=== PATIENT | female | born 1940 | race Caucasian/White ===

== ENCOUNTER 2017-05-18 12:33 | Inpatient (IN) ==
[2017-05-18] MEDS ORDERED: Lidocaine -MPF 1% 2 ML VIAL ID ONE (12:59)
[2017-05-18] MEDS ORDERED: Albuterol 2.5 MG/3 ML NEBULIZER IH ONE (12:59)
[2017-05-18] MEDS ORDERED: CeFAZolin Syr 2,000MG/20 ML 2,000 MG/20 ML SYRINGE IVPB ONE (12:59)
[2017-05-18] MEDS ORDERED: 0.9 % Sodium Chloride 500 ML IVC SCH (13:00)
--- NOTE | 2017-05-18 13:35 | History & Physical Report ---
Date of Encounter: 05/18/17 Time of Encounter: 13:30 24 Hour HP Update - Instructions Instructions: If the History and Physical is less than 30 days old and was completed prior to A.M. admission and or procedure and has NOT been updated on calendar day of procedure please complete this update prior to performing procedure. - Update Patient reports changes in Medical Condition: No Changes in examination, assessment, or condition: No Changes in Medication: No Preop tests/diagnostics Reviewed: Yes Surgery Remains Indicated: Yes Consent for Planned Operative Procedure(s) Verified: Yes - Pre-Operative Checklist Preoperative Checklist Indicated: Yes Prophylactic Antibiotic Ordered: Yes Home Medications Include Beta Isac: Yes Beta Isac Taken Today (Day of Surgery): Yes Beta Isac Taken Yesterday (Day Prior to Surgery): Yes Is VTE Prophylaxis Indicated?: Yes
--- NOTE | 2017-05-18 14:28 | Anesthesia Evaluation PreOp ---
Date of Encounter: 05/18/17 Time of Encounter: 14:26 - Past History Planned Operation: left mastectomy (Modified radical) Cardiac History: AR (x4 last 4yrs ago), HTN, Hyperlipidemia, Cardiac Stent ( stents x 4 approx 4 yrs ago. Stopped effient), Pacemaker/ICD (for cardiomyopathy ), Other (CAD) Pulmonary History: Asthma HOST/HOSTESS History: Denies Any Significant HX, Other (breast Cancer) Other Medical History: Renal (CKD 3) Anesthesia History: Past Anesthesia (reyes, hysterectomy, defibrillator placement, breast bx) Alcohol Use: none Drug use: none Medications and Allergies Fesoterodine Fumarate [Toviaz] 4 mg PO DAILY 05/10/15 [History] Glimepiride [Amaryl] 1 mg PO PRN PRN 05/10/15 [History] Linagliptin [Tradjenta] 5 mg PO DAILY 05/10/15 [History] TraMADol [Ultram] 50 mg PO Q6HR PRN 05/10/15 [History] Valsartan [Diovan] 80 mg PO DAILY 05/10/15 [History] Aspirin Enteric Coated [Aspirin EC] 81 mg PO DAILY #30 tablet. 05/12/15 [Rx] Prasugrel [Effient] 10 mg PO DAILY #30 tablet 05/12/15 [Rx] Furosemide [Lasix] 40 mg PO BID 08/13/15 [History] Isosorbide MONOnitrate (24 HR) [Imdur] 30 mg PO DAILY 08/13/15 [History] Carvedilol [Coreg] 12.5 mg PO BIDWM 10/17/16 [History] Cholecalciferol (D-3) [Vitamin D] 5,000 unit PO DAILY 10/17/16 [History] Atorvastatin [Lipitor] 40 mg PO HS 03/10/17 [History] MOM Conc [Milk of Magnesia Conc] 10 ml PO DAILY PRN 04/13/17 [History] Nitroglycerin [Nitrostat] 1 tab SL DAILY PRN 04/13/17 [History] Simethicone [Gas-X] 80 mg PO DAILY PRN 04/13/17 [History] 3 Allergy/AdvReac Type Severity Reaction Status Date / Time codeine Allergy Unknown heart races Verified 04/27/17 14:25 lisinopril Allergy Cough Verified 04/27/17 14:25 - Meds/Allergy Pre-op Review Medications Reviewed: Yes Allergies Reviewed: Yes Beta Blockers on Current Med List: Yes If Beta Blockers taken, Date/Time (Last Dose taken): today 929 Anesthesia Results - Imaging EKG: report reviewed (SINUS RHYTHM POSSIBLE INFERIOR MYOCARDIAL INFARCTION, PROBABLY OLD) Additional studies: echo 2016: Impressions: LVEF 50%. There is evidence of mild diastolic dysfunction of the left ventricle. Normal right ventricular size and function. Mild- moderate aortic regurgitation. Moderate-severe mitral regurgitation. Mild tricuspid regurgitation. Estimated RVSP was 31 mmHg. No pulmonary hypertension. There is no evidence of a PFO with agitated saline contrast. A linear echodensity consistent with a pacer lead was seen in the right atrium and right ventricle. Since prior study, 05/11/2015, LV systolic function has improved. Degree of mitral regurgitation is worse. Consider CYRIL for evaluation of mitral valve. Anesthesia Exam Selected Entries 05/18/17 13:44 Temperature 98.2 F Pulse Rate 76 Respiratory Rate 18 Blood Pressure 121/54 O2 Sat by Pulse Oximetry 96 Weight: 109kg NPO (# of Hours): 8 - HEENT Pupil (Motor): EOMI Mallampati: II Teeth: Edentulous Oral Opening: Greater than 3 - HOST/HOSTESS LOC: Oriented HOST/HOSTESS Motor: Normal RUE, Normal LUE, Normal RLE, Normal LLE, Normal Face HOST/HOSTESS Sensory: Normal: RUE, LUE, RLE, LLE, Face - Cardiac Rhythm: Regular Murmur: None - Pulmonary Breath Sounds: bilateral Clear Respiratory Effort: Symmetrical Anesthesia Assess/Plan ASA Score: 4 Modified [place] Scale for Level of Consciousness: Cooperative, oriented, and tranquil Anesthetic Plan: General Monitoring Plan: Standard Monitors Recovery Plan: PACU (Discussed GA, agrees to proceed)
[2017-05-18] MEDS ORDERED: Scopolamine Patch 1.5 MG PATCH.TD72 TD ONE (14:34)
[2017-05-18] MEDS ORDERED: *HR* Vasopressin 20 UNIT/ML VIAL ONE (15:02)
[2017-05-18] MEDS ORDERED: *HR* Succinylcholine 200 MG/10 ML VIAL IVP ONE (15:05)
[2017-05-18] MEDS ORDERED: Ondansetron 4 MG/2 ML VIAL ONE (15:05)
[2017-05-18] MEDS ORDERED: Lidocaine -MPF 2% 2 ML VIAL ONE (15:05)
[2017-05-18] MEDS ORDERED: *HR* FentaNYL (PF) 100 MCG/2 ML VIAL ONE ×2 (15:06→16:09)
[2017-05-18] MEDS ORDERED: *HR* Propofol 200 MG/20 ML VIAL IVP ONE (15:06)
[2017-05-18] MEDS ORDERED: Lidocaine -MPF 4% 5 ML AMPUL ONE (15:14)
[2017-05-18] MEDS ORDERED: *HR* Phenylephrine 10 MG/ML VIAL ONE (15:14)
[2017-05-18] MEDS ORDERED: *HR* Promethazine 25 MG/ML VIAL IVP PRN (15:16)
[2017-05-18] MEDS ORDERED: *HR* HYDROmorphone (PF) 1 MG/ML SYRINGE IVP PRN ×2 (15:16→16:40)
[2017-05-18] MEDS ORDERED: *HR* Labetalol 20 MG/4 ML SYRINGE IVP PRN (15:16)
[2017-05-18] MEDS ORDERED: EPHEDrine 50 MG/ML VIAL ONE (15:42)
[2017-05-18] MEDS ORDERED: *HR* OxyCODONE/APAP 5/325 TABLET PO PRN (16:40)
[2017-05-18] MEDS ORDERED: Ondansetron 4 MG/2 ML VIAL IVP PRN ×2 (16:40→17:55)
[2017-05-18] MEDS ORDERED: 0.9 % Sodium Chloride 1,000 ML IVC SCH (16:45)
--- NOTE | 2017-05-18 16:52 | Operative Note ---
Date of procedure: 05/18/17 Pre-op diagnosis: Left breast cancer Post-op diagnosis: same Procedure: Left modified radical mastectomy Anesthesia: CRISTIANE Surgeon: Gray Rock Estimated blood loss (cc): 25 Specimen: Left modified radical mastectomy Condition: stable Disposition: PACU Procedure in Detail: After informed consent the patient was taken to the operating room and placed in supine position and given adequate general endotracheal anesthesia. Timeout was taken. The patient was identified. Lateralizing natalee was identified. I traced out mastectomy incision in such a way that the pacemaker would be preserved. This led to an oblique orientation. I incise the skin. I made superior flaps to the level of the pacemaker and then stopped and made a careful subcutaneous dissection around the pacemaker leaving this intact. The actual pacemaker was never encountered. I did dissected up to the fibrous capsule around the pacemaker. After making the superior flaps and initial axillary dissection immediately inferior flaps electrocautery. Then rotated the breast off the chest wall by dissecting along the pectoralis fascia. I then placed a retractor behind the pectoralis major muscle and identified the axillary vein. I rotated all of the lymphatic tissue off the axillary vein and carefully followed the thoracodorsal trunk onto the latissimus. I rotated all lymphatic tissue off either side of the dorsal trunk. The thoracodorsal nerve was identified and left intact. I was not able to identify the long thoracic nerve of khalil. I oriented the specimen with topical contrast in pigment. 2 # 10 Curtis-Mattson drains were placed. These were sutured in place with 2-0 silk. The skin was reapproximated with interrupted Vicryl and skin clips. She tolerated the procedure very well. There were no problems with pacemaker during the procedure.
--- NOTE | 2017-05-18 17:29 | Anesthesia Evaluation Post Op ---
Date of Encounter: 05/18/17 Time of Encounter: 17:28 - Vital Signs Vital Signs: Vital Signs/O2 Sat, Most Current Temp Pulse Resp BP Pulse Ox 97.7 F 73 16 136/58 100 05/18/17 17:23 05/18/17 17:23 05/18/17 17:23 05/18/17 17:23 05/18/17 17:23 - Lungs Lungs: Clear Ascult./Percussion - Airway Airway: Non-obstructed - Cardiovascular Regular Rate - Mental Status Mental Status: Alert & Oriented, Answers Appropriately - Pain Pain Scale: 4 Pain Scale used: Numeric (1 - 10) - Nausea Vomiting Nausea Vomiting: Not Present - Hydration Hydration: NPO, Has not voided - Discharge PostOp Status: Transfer Patient to floor
[2017-05-18] MEDS ORDERED: *HR* Glimepiride 2 MG TABLET PO PRN (17:55)
[2017-05-18] MEDS ORDERED: *HR* Heparin 5,000 UNIT/ML VIAL SQ SCH (18:00)
[2017-05-18] MEDS: *HR* Heparin 5,000 UNIT/ML VIAL SQ SCH (18:31)
[2017-05-18] MEDS: 0.9 % Sodium Chloride 1,000 ML IVC SCH (18:31)
[2017-05-18] MEDS: *HR* OxyCODONE/APAP 5/325 TABLET PO PRN (18:37)
[2017-05-18] MEDS ORDERED: 0.9 % Sodium Chloride 500 ML IVC ONE (21:37)
[2017-05-18] MEDS: Furosemide 40 MG TABLET PO SCH (22:54)
[2017-05-18] MEDS: CeFAZolin Premix DUPLEX 2,000 MG/50 ML BAG IVPB SCH (23:27)
[2017-05-19] MEDS ORDERED: CeFAZolin Premix DUPLEX 2,000 MG/50 ML BAG IVPB SCH
[2017-05-19 05:18] LABS: Basophils % 0.1 %; Hematocrit 26.9 % (35.3-44.9); Hemoglobin 8.4 g/dL (11.5-15.4); Immature Granulocytes % 0.5 % (0-4); Lymphocytes # 0.7 K/mcL (0.6-4.6); Mean Corpuscular HGB Conc 31.2 g/dL (31.6-35.5); Mean Corpuscular Hemoglobin 29.2 pg (28.0-33.3); Mean Corpuscular Volume 93.4 fL (83.0-100.0); Mean Platelet Volume 10.1 fL (9.4-12.4); Monocytes # 0.4 K/mcL (0.0-1.3); Monocytes % 3.9 %; Neutrophils # 9.4 K/mcL (1.6-8.9); Platelet Count 191 K/mcL (140-400); Red Blood Count 2.88 M/mcL (3.82-4.97); Red Cell Distribution Width 14.1 % (11.5-14.5); Segmented Neutrophils % 88.5 %
[2017-05-19 05:30] LABS: Calcium 7.7 mg/dL (8.6-10.8); Potassium 3.8 mEq/L (3.5-4.5)
[2017-05-19] MEDS: *HR* OxyCODONE/APAP 5/325 TABLET PO PRN (05:55)
[2017-05-19] MEDS: *HR* Heparin 5,000 UNIT/ML VIAL SQ SCH ×2 (06:31→18:01)
[2017-05-19] MEDS: Aspirin Enteric Coated 81 MG Tablet PO SCH (07:54)
[2017-05-19] MEDS: Furosemide 40 MG TABLET PO SCH ×2 (07:54→18:01)
[2017-05-19] MEDS: *HR* HYDROmorphone (PF) 1 MG/ML SYRINGE IVP PRN ×3 (07:54→18:01)
[2017-05-19] MEDS: Isosorbide MONOnitrate (24 HR) 30 MG TAB.ER.24H PO SCH (07:55)
[2017-05-19] MEDS: (Linagliptin [Tradjenta] 5 MG) PO SCH (07:55)
[2017-05-19] MEDS: Valsartan 80 MG TABLET PO SCH (07:55)
[2017-05-19] MEDS: CeFAZolin Premix DUPLEX 2,000 MG/50 ML BAG IVPB SCH (08:30)
[2017-05-19] MEDS ORDERED: D5% in Water 1,000 ML IVC PRN (10:35)
[2017-05-19] MEDS ORDERED: Dextrose Gel 15 GM PO PRN ×2 (10:35)
[2017-05-19] MEDS ORDERED: *HR* Dextrose 50 % in Water (Syg) 50 ML SYRINGE IVP PRN (10:35)
[2017-05-19] MEDS: Insulin LISPRO 300 UNITS/3 ML VIAL SQ SCH ×3 (11:48→21:02)
--- NOTE | 2017-05-19 12:05 | General Surgery Progress Note ---
<ZahidaShantal Gordo - Last Filed: 05/19/17 13:17> Date of Encounter: 05/19/17 Time of Encounter: 12:00 - Assessment and Plan (1) Breast cancer in female Current Visit: No Status: Acute POD #1 Left modified radical mastectomy with Dr. Rock Supportive care and pain control Continue JESSICA drain X 2 Drain education managed services sales consultant to assess for home care needs- home health care IV fluids- 50ml/hour Daily dressing changes Qualifiers: Breast location: unspecified site of breast Estrogen receptor status: unspecified Laterality: left Qualified Code(s): C50.912 - Malignant neoplasm of unspecified site of left female breast (2) Morbid obesity with BMI of 40.0-44.9, adult Current Visit: Yes Status: Chronic (3) Ischemic cardiomyopathy Current Visit: No Status: Chronic (4) DM (diabetes mellitus), type 2 Current Visit: No Status: Chronic Continue home medication regimen Hyperglycemia noted Check blood sugars ACHS Medium dose sliding scale insulin added Will continue to monitor and adjust as necessary Qualifiers: Diabetes mellitus complication status: with kidney complications Diabetes mellitus complication detail: with chronic kidney disease Diabetes mellitus terminal manager insulin use: without penitentiary use Chronic kidney disease stage: stage 3 (moderate) Qualified Code(s): E11.22 - Type 2 diabetes mellitus with diabetic chronic kidney disease; N18.3 - Chronic kidney disease, stage 3 ( moderate); N18.3 - Chronic kidney disease, stage 3 (moderate) (5) CKD (chronic kidney disease), stage III Current Visit: No Status: Acute Cr- 1.58 IV fluids- 50ml/hour Avoid nephrotoxic medications Strict I&Os Repeat am labs (6) CAD (coronary artery disease) Current Visit: No Status: Chronic Qualifiers: Coronary Disease-Associated Artery/Lesion type: [place] artery [place] vs. transplanted heart: [place] heart Associated angina: without angina Qualified Code(s): I25.10 - Atherosclerotic heart disease of [place] coronary artery without angina pectoris (7) DVT prophylaxis Current Visit: No Status: Acute Heparin 5,000 units SQ twice daily for DVT prophylaxis EPCDs to bilateral lower extremities for DVT prophylaxis Subjective Patient reports: no new complaints, still having pain (post surgical discomfort controlled), tolerating a regular diet, voiding w/o difficulty, afebrile Objective Vital Signs - Last 8 Hours Temp Pulse Resp BP Pulse Ox 05/19/17 11:29 97.4 F L 81 16 111/63 100 05/19/17 07:46 97.9 F 80 17 133/68 99 05/19/17 07:26 97.9 F 75 17 98/60 99 Intake and Output 05/18/17 05/19/17 05/19/17 23:59 07:59 15:59 Intake Total 50 / 50 50 / 50 240 / 240 Output Total 230 / 230 370 / 370 180 / 180 Balance -180 / -180 -320 / -320 60 / 60 Intake: IV Fluids 50 / 50 Ancef Premix DUPLEX 2,000 mg In 50 / 50 50 ml @ 100 mls/hr IVPB Q8HR AKILA Rx#:[id number] Oral 0 / 0 50 / 50 240 / 240 Output: Urine 0 / 0 Estimated Blood Loss 25 / 25 Wound Drainage 205 / 205 370 / 370 180 / 180 Left Breast 90 / 90 195 / 195 130 / 130 Left Distal Breast 40 / 40 175 / 175 50 / 50 Other: Meal Breakfast Percent of Meal Consumed 85% # Urine Diapers 2 1 Blood Glucose* 240 - General physical appearance well developed, well nourished, no distress - Eyes normal ocular movement - ENT normal mucosa, atraumatic, normocephalic - Neck Neck exam: trachea midline - Respiratory normal respiratory effort, clear to auscultation - Cardiovascular Cardiovascular exam: Present: RRR - Abdomen Abdomen: Present: bowel sounds present, soft, non tender - Incision Incision: Present: clean and dry, intact, approximated - Integumentary other (Left chest wall with JESSICA drain X 2 with blood tinged drainage JESSICA #1- 325ml since midnight JESSICA #2- 225ml since midnight) - Neurologic CN 2-12 grossly intact - Psychiatric oriented to time, oriented to person, oriented to place, speech is normal, memory intact - Labs 05/19/17 04:36 05/19/17 04:36 Diabetes panel 05/19/17 Range/Units 04:36 Sodium 137 (136-145) mEq/L Potassium 3.8 (3.5-4.5) mEq/L Chloride 104 (98-109) mEq/L Carbon Dioxide 21 (19-29) mEq/L BUN 28 H (7-20) mg/dL Creatinine 1.58 H (0.57-1.11) mg/dL Glucose 285 H (70-99) mg/dL Calcium 7.7 L (8.6-10.8) mg/dL Calcium panel 05/19/17 Range/Units 04:36 Calcium 7.7 L (8.6-10.8) mg/dL Pituitary panel 05/19/17 Range/Units 04:36 Sodium 137 (136-145) mEq/L Potassium 3.8 (3.5-4.5) mEq/L Chloride 104 (98-109) mEq/L Carbon Dioxide 21 (19-29) mEq/L BUN 28 H (7-20) mg/dL Creatinine 1.58 H (0.57-1.11) mg/dL Glucose 285 H (70-99) mg/dL Calcium 7.7 L (8.6-10.8) mg/dL Adrenal panel 05/19/17 Range/Units 04:36 Sodium 137 (136-145) mEq/L Potassium 3.8 (3.5-4.5) mEq/L Chloride 104 (98-109) mEq/L Carbon Dioxide 21 (19-29) mEq/L BUN 28 H (7-20) mg/dL Creatinine 1.58 H (0.57-1.11) mg/dL Glucose 285 H (70-99) mg/dL Calcium 7.7 L (8.6-10.8) mg/dL - VTE Documentation of Mechanical Device: Intermittent pneumatic compression device Consult Discharge Plan - Plan Additional Instructions: #1 may shower 05/20/17, no tub bath for 2 weeks (pin drains up using a lanyard or equivalent) #2 wash incisions with soap and water and pat dry daily #3 no lifting, pushing, pulling more than 15 pounds for the next 2 weeks #4 no driving until off narcotics for 24 hours and able to safely react in the car #5 may climb stairs Wound care- cleanse incision and around drains with soap and water and pat dry, apply split 4X4 gauze to drains X 2, apply ABD pad X 2 to left chest incision, wrap with rohit bandage and secure daily and prn if soiled. Referrals: Gray Rock MD [Partnered Physician] - 06/02/17 1:00 pm Shantal Teague CNP [Advanced Practice Nurse] - 05/25/17 9:30 am (surgery follow-up) Prescriptions: OxyCODONE/APAP 5/325 [Percocet 5/325 MG] 1 each PO Q4HR PRN #30 tablet PRN Reason: Pain Docusate [Colace] 100 mg PO BID #30 capsule - Attending Attestation For this encounter, I have reviewed the QUALITATIVE RESEARCHER or PA documentation, treatment plan, and medical decision making; and I have had face to face time with this patient. <Gray Rock - Last Filed: 05/20/17 07:49> Date of Encounter: 05/19/17 - Assessment and Plan (1) Acute blood loss anemia Current Visit: Yes Status: Acute (2) Acute blood loss as cause of postoperative anemia Current Visit: Yes Status: Acute Acute blood loss anemia secondary to anticoagulation and mastectomy. We will continue to follow her hemoglobin closely. Objective Vital Signs - Last 8 Hours Temp Pulse Resp BP 05/20/17 06:17 97.6 F 80 14 111/69 Intake and Output 05/19/17 05/19/17 05/20/17 15:59 23:59 07:59 Intake Total 1360 / 1360 360 / 360 0 / 0 Output Total 410 / 410 260 / 260 60 / 60 Balance 950 / 950 100 / 100 -60 / -60 Intake: IV Fluids 1000 / 1000 0.9 % Sodium Chloride 1,000 ML 1000 / 1000 @ 50 mls/hr IVC .Q20H AKILA Rx#: [id number] Oral 360 / 360 360 / 360 0 / 0 Output: Urine 0 / 0 0 / 0 Wound Drainage 410 / 410 260 / 260 60 / 60 Left Breast 300 / 300 180 / 180 30 / 30 Left Distal Breast 110 / 110 80 / 80 30 / 30 Other: Meal Lunch Dinner Percent of Meal Consumed 50% 75% # Urine Diapers 1 Weight 109.089 kg Blood Glucose* 175 168 Patient Weight 05/20/17 23:59 Weight 109.089 kg - Labs 05/19/17 15:50 05/19/17 04:36 - Attending Attestation The patient is postoperative day 1 from complicated mastectomy. She had some bleeding last evening the Curtis-Mattson drains have sanguinous drainage. She has dropped her hemoglobin. She will require further observation. We will keep close eye to make sure she does not build up any blood or clot underneath the flaps. Gray Rock MD FACS
--- NOTE | 2017-05-19 15:29 | Discharge Summary ---
Date of Encounter: 05/19/17 Time of Encounter: 15:25 - Discharge Diagnosis (1) Breast cancer in female Priority: Primary Status: Acute Qualifiers: Breast location: unspecified site of breast Estrogen receptor status: unspecified Laterality: left Qualified Code(s): C50.912 - Malignant neoplasm of unspecified site of left female breast (2) Morbid obesity with BMI of 40.0-44.9, adult Priority: Secondary Status: Chronic (3) Ischemic cardiomyopathy Priority: Secondary Status: Chronic (4) DM (diabetes mellitus), type 2 Priority: Secondary Status: Chronic Qualifiers: Diabetes mellitus complication status: with kidney complications Diabetes mellitus complication detail: with chronic kidney disease Diabetes mellitus termite control technician insulin use: without skilled nursing use Chronic kidney disease stage: stage 3 (moderate) Qualified Code(s): E11.22 - Type 2 diabetes mellitus with diabetic chronic kidney disease; N18.3 - Chronic kidney disease, stage 3 ( moderate); N18.3 - Chronic kidney disease, stage 3 (moderate) (5) CKD (chronic kidney disease), stage III Priority: Secondary Status: Acute (6) CAD (coronary artery disease) Priority: Secondary Status: Chronic Qualifiers: Coronary Disease-Associated Artery/Lesion type: [place] artery [place] vs. transplanted heart: [place] heart Associated angina: without angina Qualified Code(s): I25.10 - Atherosclerotic heart disease of [place] coronary artery without angina pectoris (7) DVT prophylaxis Priority: Secondary Status: Acute - Discharge Medications Prescriptions: OxyCODONE/APAP 5/325 [Percocet 5/325 MG] 1 each PO Q4HR PRN #30 tablet PRN Reason: Pain Docusate [Colace] 100 mg PO BID #30 capsule Home Medications: Fesoterodine Fumarate [Toviaz] 4 mg PO DAILY 05/10/15 [History] Glimepiride [Amaryl] 1 mg PO PRN PRN 05/10/15 [History] Linagliptin [Tradjenta] 5 mg PO DAILY 05/10/15 [History] TraMADol [Ultram] 50 mg PO Q6HR PRN 05/10/15 [History] Valsartan [Diovan] 80 mg PO DAILY 05/10/15 [History] Aspirin Enteric Coated [Aspirin EC] 81 mg PO DAILY #30 tablet.dr 05/12/15 [Rx] Prasugrel [Effient] 10 mg PO DAILY #30 tablet 05/12/15 [Rx] Furosemide [Lasix] 40 mg PO BID 08/13/15 [History] Isosorbide MONOnitrate (24 HR) [Imdur] 30 mg PO DAILY 08/13/15 [History] Carvedilol [Coreg] 12.5 mg PO BIDWM 10/17/16 [History] Cholecalciferol (D-3) [Vitamin D] 5,000 unit PO DAILY 10/17/16 [History] Atorvastatin [Lipitor] 40 mg PO HS 03/10/17 [History] MOM Conc [MILK OF MAGNESIA conc] 10 ml PO DAILY PRN 04/13/17 [History] Nitroglycerin [Nitrostat] 1 tab SL DAILY PRN 04/13/17 [History] Simethicone [Gas-X] 80 mg PO DAILY PRN 04/13/17 [History] Docusate [Colace] 100 mg PO BID #30 capsule 05/19/17 [Rx] OxyCODONE/APAP 5/325 [Percocet 5/325 MG] 1 each PO Q4HR PRN #30 tablet 05/19/17 [Rx] Allergies/Adverse Reactions: 3 Allergy/AdvReac Type Severity Reaction Status Date / Time codeine Allergy Unknown heart races Verified 04/27/17 14:25 lisinopril Allergy Cough Verified 04/27/17 14:25 General Surgery Exam Initial Vital Signs Temp Pulse Resp BP Pulse Ox 98.2 F 76 18 121/54 96 05/18/17 13:44 05/18/17 13:44 05/18/17 13:44 05/18/17 13:44 05/18/17 13:44 Date of admission: 05/18/17 17:54 Primary care physician: PCP NONE Consults: 05/19/17 13:04 Consult to Micromatic Hone Operator [CONS] Routine Reason for SW Consult: assess for home needs- home health Discharging clinician: Gray Teague) Anticipated date of discharge: 05/20/17 - Patient Status Disposition: Home Health Service Condition: Good Functional capacity at discharge: independent ambulation Overall status at discharge: patient is progressing back to baseline - Discharge Instructions Follow Up With: Gray Rock MD [Partnered Physician] - 06/02/17 1:00 pm [place],Shantal A, EXTERN [Advanced Practice Nurse] - 05/25/17 9:30 am (surgery follow-up) Additional Instructions: #1 may shower 05/20/17, no tub bath for 2 weeks (pin drains up using a lanyard or equivalent) #2 wash incisions with soap and water and pat dry daily #3 no lifting, pushing, pulling more than 15 pounds for the next 2 weeks #4 no driving until off narcotics for 24 hours and able to safely react in the car #5 may climb stairs Wound care- cleanse incision and around drains with soap and water and pat dry, apply split 4X4 gauze to drains X 2, apply ABD pad X 2 to left chest incision, wrap with rohit bandage and secure daily and prn if soiled. - Diet and Activity Activity: increase activity as tolerated Diet: advance to your usual diet - Hospital Course Hospital course: Ms. Hinson is a 76 year old female who has been seen and evaluated by Dr. Rock for a primary breast cancer. She is status post a left modified radical mastectomy. She did experience postoperative bleeding. She was maintained in the hospital for monitoring of blood loss and pain control. We will begin discharge planning to home when the patient's blood counts are stable, her pain is well-controlled with oral pain medication, vital signs are stable and she is afebrile, she is tolerating a diet without nausea or vomiting. She did experience hyperglycemia during her hospital stay and was placed on a medium scale of sliding scale insulin. The patient was given drain education during her hospitalization. Social service was consulted for setting up home health care. She will be discharged to home with her drains in place and will follow up in the office in the next 7-10 days for evaluation. - Time Spent with Patient Total time spent providing and/or coordinating discharge services: Less than 30 minutes Labs on day of discharge: Labs from last 24 hours 05/19/17 05/19/17 05/19/17 11:34 04:36 04:36 WBC 10.6 RBC 2.88 L Hgb 8.4 L Hct 26.9 L MCV 93.4 MCH 29.2 MCHC 31.2 L RDW 14.1 Plt Count 191 MPV 10.1 Immature Gran % 0.5 Seg Neutrophils % 88.5 Lymphocytes % 7.0 Monocytes % 3.9 Eosinophils % 0.0 Basophils % 0.1 Neutrophils # 9.4 H Lymphocytes # 0.7 Monocytes # 0.4 Eosinophils # 0.0 Basophils # 0.0 Sodium 137 Potassium 3.8 Chloride 104 Carbon Dioxide 21 BUN 28 H Creatinine 1.58 H Est GFR ( Amer) 38 L Est GFR (Non-Af Amer) 32 L BUN/Creatinine Ratio 18 Glucose 285 H POC Glucose 240 H Calculated Osmolality 300 Calcium 7.7 L - Attending Attestation For this encounter, I have reviewed the SENIOR ADULTS DIRECTOR or PA documentation, treatment plan, and medical decision making; and I have had face to face time with this patient.
--- NOTE | 2017-05-19 15:38 | Physician Discharge Referral ---
Home Health/Hosp Referral Info Transfer to: Home Health Attending Provider: Dr. Gray Rock Provider in Charge Post Discharge: Other (PCP and Dr. Gray Rock) - Diagnosis (1) Breast cancer in female Priority: Primary Status: Acute (2) Morbid obesity with BMI of 40.0-44.9, adult Priority: Secondary Status: Chronic (3) Ischemic cardiomyopathy Priority: Secondary Status: Chronic (4) DM (diabetes mellitus), type 2 Priority: Secondary Status: Chronic (5) CKD (chronic kidney disease), stage III Priority: Secondary Status: Acute (6) CAD (coronary artery disease) Priority: Secondary Status: Chronic (7) DVT prophylaxis Priority: Secondary Status: Acute - Respiratory Orders None - Dressing/Wound Care Site: Left chest wall Type of Dressing/Treatments w/Frequency: May shower 05/20/17, no tub bath for 2 weeks (pin drains up using a lanyard or equivalent) Wound care- cleanse incision and around drains with soap and water and pat dry, apply split 4X4 gauze to drains X 2, apply ABD pad X 2 to left chest incision, wrap with rohit bandage and secure daily and prn if soiled. - Diet/Nutrition Diet/Nutrition Orders: No Concentrated Sweets (Diabetic diet) - Activity Activity Orders: Up ad con, Ambulate - Services Needed Following services are medically necessary services: Senior Care Care Orders: #1 may shower 05/20/17, no tub bath for 2 weeks (pin drains up using a lanyard or equivalent) #2 wash incisions with soap and water and pat dry daily #3 no lifting, pushing, pulling more than 15 pounds for the next 2 weeks #4 no driving until off narcotics for 24 hours and able to safely react in the car #5 may climb stairs Wound care- cleanse incision and around drains with soap and water and pat dry, apply split 4X4 gauze to drains X 2, apply ABD pad X 2 to left chest incision, wrap with rohit bandage and secure daily and prn if soiled. - Transfer Medications Prescriptions: OxyCODONE/APAP 5/325 [Percocet 5/325 MG] 1 each PO Q4HR PRN #30 tablet PRN Reason: Pain Docusate [Colace] 100 mg PO BID #30 capsule Home Medications: Fesoterodine Fumarate [Toviaz] 4 mg PO DAILY 05/10/15 [History] Glimepiride [Amaryl] 1 mg PO PRN PRN 05/10/15 [History] Linagliptin [Tradjenta] 5 mg PO DAILY 05/10/15 [History] TraMADol [Ultram] 50 mg PO Q6HR PRN 05/10/15 [History] Valsartan [Diovan] 80 mg PO DAILY 05/10/15 [History] Aspirin Enteric Coated [Aspirin EC] 81 mg PO DAILY #30 tablet.dr 05/12/15 [Rx] Prasugrel [Effient] 10 mg PO DAILY #30 tablet 05/12/15 [Rx] Furosemide [Lasix] 40 mg PO BID 08/13/15 [History] Isosorbide MONOnitrate (24 HR) [Imdur] 30 mg PO DAILY 08/13/15 [History] Carvedilol [Coreg] 12.5 mg PO BIDWM 10/17/16 [History] Cholecalciferol (D-3) [Vitamin D] 5,000 unit PO DAILY 10/17/16 [History] Atorvastatin [Lipitor] 40 mg PO HS 03/10/17 [History] MOM Conc [MILK OF MAGNESIA conc] 10 ml PO DAILY PRN 04/13/17 [History] Nitroglycerin [Nitrostat] 1 tab SL DAILY PRN 04/13/17 [History] Simethicone [Gas-X] 80 mg PO DAILY PRN 04/13/17 [History] Docusate [Colace] 100 mg PO BID #30 capsule 05/19/17 [Rx] OxyCODONE/APAP 5/325 [Percocet 5/325 MG] 1 each PO Q4HR PRN #30 tablet 05/19/17 [Rx] Allergies/Adverse Reactions: 3 Allergy/AdvReac Type Severity Reaction Status Date / Time codeine Allergy Unknown heart races Verified 04/27/17 14:25 lisinopril Allergy Cough Verified 04/27/17 14:25 Certification: Further, I certify that my clinical findings support that this patient is homebound (i.e. absences from home require considerable and taxing effort and are for medical reasons or scientologist services or infrequently or short duration when for other reasons) because: Homebound Reason: Patient requires assistance of a person or device to safely leave home, Post-surgery restriction and or conditions limit ability to leave home, Leaving home requires considerable and taxing effort due to condition Attestation: My signature below is to certify that this patient is under my care and that I, or nurse practitioner, or a physician's community relations assistant working with me, has a face-to -face encounter with this patient.
[2017-05-19 16:01] LABS: Hematocrit 25.7 % (35.3-44.9); Hemoglobin 8.5 g/dL (11.5-15.4)
[2017-05-19] MEDS: Simethicone 80 MG TAB.CHEW PO PRN (21:09)
[2017-05-20] MEDS ORDERED: *HR* Metoprolol 5 MG/5 ML VIAL IVP ONE (00:27)
[2017-05-20] MEDS: *HR* HYDROmorphone (PF) 1 MG/ML SYRINGE IVP PRN ×2 (01:05→16:01)
[2017-05-20] MEDS: 0.9 % Sodium Chloride 1,000 ML IVC SCH (03:36)
[2017-05-20] MEDS: *HR* Heparin 5,000 UNIT/ML VIAL SQ SCH ×2 (06:30→20:05)
[2017-05-20 08:03] LABS: Basophils % 0.2 %; Eosinophils # 0.1 K/mcL (0.0-0.6); Hematocrit 24.5 % (35.3-44.9); Immature Granulocytes % 0.6 % (0-4); Lymphocytes # 2.7 K/mcL (0.6-4.6); Lymphocytes % 21.8 %; Mean Corpuscular HGB Conc 32.7 g/dL (31.6-35.5); Mean Corpuscular Hemoglobin 29.4 pg (28.0-33.3); Mean Corpuscular Volume 90.1 fL (83.0-100.0); Mean Platelet Volume 10.3 fL (9.4-12.4); Monocytes # 1.1 K/mcL (0.0-1.3); Monocytes % 8.9 %; Neutrophils # 8.2 K/mcL (1.6-8.9); Platelet Count 177 K/mcL (140-400); Red Blood Count 2.72 M/mcL (3.82-4.97); Red Cell Distribution Width 14.7 % (11.5-14.5); Segmented Neutrophils % 67.5 %
[2017-05-20 08:05] LABS: Calcium 8.1 mg/dL (8.6-10.8); Potassium 4.3 mEq/L (3.5-4.5)
[2017-05-20] MEDS: Valsartan 80 MG TABLET PO SCH (08:20)
[2017-05-20] MEDS: Furosemide 40 MG TABLET PO SCH ×2 (08:20→17:13)
[2017-05-20] MEDS: Isosorbide MONOnitrate (24 HR) 30 MG TAB.ER.24H PO SCH (08:20)
[2017-05-20] MEDS: Aspirin Enteric Coated 81 MG Tablet PO SCH (08:21)
[2017-05-20] MEDS: (Linagliptin [Tradjenta] 5 MG) PO SCH (08:21)
[2017-05-20] MEDS: Insulin LISPRO 300 UNITS/3 ML VIAL SQ SCH ×3 (08:35→17:33)
--- NOTE | 2017-05-20 09:48 | General Surgery Progress Note ---
Date of Encounter: 05/20/17 Time of Encounter: 09:45 - Assessment and Plan (1) Acute blood loss anemia Current Visit: Yes Status: Acute The hemoglobin is 8.0 hematocrit is 24.5%. This represents a drop from yesterday. She continues on anticoagulation with heparin. I do not think that she is ready to transition to oral Effient at this point. I like to see if her hemoglobin stabilizes. (2) Acute blood loss as cause of postoperative anemia Current Visit: Yes Status: Acute Acute blood loss anemia secondary to anticoagulation and mastectomy. We will continue to follow her hemoglobin closely. (3) Breast cancer in female Current Visit: Yes Status: Acute The patient underwent left modified radical mastectomy. She continues to have sanguinous drainage from the Curtis-Mattson drains Qualifiers: Breast location: unspecified site of breast Estrogen receptor status: unspecified Laterality: left Qualified Code(s): C50.912 - Malignant neoplasm of unspecified site of left female breast Subjective Narrative: The patient is awake and alert. She does not have any symptoms this morning. She had an episode of tachycardia last night consistent with atrial fibrillation. She had missed one of her carvedilol doses. She was given an additional dose of metoprolol. Today she is rate controlled A. fib. She is back on her home doses. She continues to have sanguinous drainage from the Curtis-Mattson drains. Her hemoglobin has dropped to 8.0 with hematocrit 24.5%. This is consistent with blood loss anemia worsened by postoperative anticoagulation secondary to atrial fibrillation. She is not ready to transition to oral Effient yet. I would like to continue to watch her blood counts to see if her postoperative blood loss anemia worsens, or requires transfusion. We will continue with close observation today and continue to treat her rate as related to atrial fibrillation. Objective Vital Signs - Last 8 Hours Temp Pulse Resp BP Pulse Ox 05/20/17 08:20 97.5 F L 72 16 119/75 98 05/20/17 06:17 97.6 F 80 14 111/69 Intake and Output 05/19/17 05/20/17 05/20/17 23:59 07:59 15:59 Intake Total 360 / 360 0 / 0 391 / 391 Output Total 260 / 260 60 / 60 Balance 100 / 100 -60 / -60 391 / 391 Intake: IV Fluids 391 / 391 0.9 % Sodium Chloride 1,000 ML 391 / 391 @ 50 mls/hr IVC .Q20H [facility] Rx#: [id number] Oral 360 / 360 0 / 0 Output: Urine 0 / 0 Wound Drainage 260 / 260 60 / 60 Left Breast 180 / 180 30 / 30 Left Distal Breast 80 / 80 30 / 30 Other: Meal Dinner Percent of Meal Consumed 75% # Urine Diapers 1 Weight 109.089 kg Blood Glucose* 168 140 Patient Weight 05/20/17 23:59 Weight 109.089 kg - General physical appearance well developed, well nourished, chronically ill - Respiratory normal expansion, normal respiratory effort, clear to percussion, clear to auscultation - Cardiovascular Cardiovascular exam: Present: RRR, no murmurs/rubs/gallops - Abdomen Abdomen: Present: bowel sounds present, soft, non tender - Incision Incision: Present: clean and dry - Neurologic normal coordination, normal sensation - Psychiatric oriented to time, oriented to person, oriented to place, speech is normal, memory intact - Labs 05/20/17 07:27 05/20/17 07:27 Diabetes panel 05/20/17 Range/Units 07:27 Sodium 139 (136-145) mEq/L Potassium 4.3 (3.5-4.5) mEq/L Chloride 106 (98-109) mEq/L Carbon Dioxide 20 (19-29) mEq/L BUN 36 H (7-20) mg/dL Creatinine 1.28 H (0.57-1.11) mg/dL Glucose 126 H (70-99) mg/dL Calcium 8.1 L (8.6-10.8) mg/dL Calcium panel 05/20/17 Range/Units 07:27 Calcium 8.1 L (8.6-10.8) mg/dL Pituitary panel 05/20/17 Range/Units 07:27 Sodium 139 (136-145) mEq/L Potassium 4.3 (3.5-4.5) mEq/L Chloride 106 (98-109) mEq/L Carbon Dioxide 20 (19-29) mEq/L BUN 36 H (7-20) mg/dL Creatinine 1.28 H (0.57-1.11) mg/dL Glucose 126 H (70-99) mg/dL Calcium 8.1 L (8.6-10.8) mg/dL Adrenal panel 05/20/17 Range/Units 07:27 Sodium 139 (136-145) mEq/L Potassium 4.3 (3.5-4.5) mEq/L Chloride 106 (98-109) mEq/L Carbon Dioxide 20 (19-29) mEq/L BUN 36 H (7-20) mg/dL Creatinine 1.28 H (0.57-1.11) mg/dL Glucose 126 H (70-99) mg/dL Calcium 8.1 L (8.6-10.8) mg/dL - VTE Documentation of Mechanical Device: Intermittent pneumatic compression device Consult Discharge Plan - Plan Additional Instructions: #1 may shower 05/20/17, no tub bath for 2 weeks (pin drains up using a lanyard or equivalent) #2 wash incisions with soap and water and pat dry daily #3 no lifting, pushing, pulling more than 15 pounds for the next 2 weeks #4 no driving until off narcotics for 24 hours and able to safely react in the car #5 may climb stairs Wound care- cleanse incision and around drains with soap and water and pat dry, apply split 4X4 gauze to drains X 2, apply ABD pad X 2 to left chest incision, wrap with rohit bandage and secure daily and prn if soiled. Referrals: Gray Rock MD [Partnered Physician] - 06/02/17 1:00 pm Shantal Teague CNP [Advanced Practice Nurse] - 05/25/17 9:30 am (surgery follow-up) Prescriptions: OxyCODONE/APAP 5/325 [Percocet 5/325 MG] 1 each PO Q4HR PRN #30 tablet PRN Reason: Pain Docusate [Colace] 100 mg PO BID #30 capsule
[2017-05-20] MEDS ORDERED: Ringers Solution, Lactated 500 ML IVC ONE ×2 (12:37→13:00)
--- NOTE | 2017-05-20 13:28 | Cardiology Consult Note ---
<Ney Pérez - Last Filed: 05/20/17 13:20> Date of Encounter: 05/20/17 Time of Encounter: 13:20 Assessment and Plan (1) Afib Current Visit: Yes Status: Acute Short periods of paroxysmal atrial fibrillation seen. Likely due to missed carvedilol doses in the setting of hypotension. She did receive carvedilol today. Now NSR. Hold diovan for hypotension and to allow for administration of carvedilol. Hgb down to 8 from 11.8. Recommend blood transfusion to keep Hgb 10 in the setting of CAD. Surgery following. Declined AC in the past. Currently not a candidate due to acute anemia. TTE 04/2016:LVEF 50%. There is evidence of mild diastolic dysfunction of the left ventricle Normal right ventricular size and function. Mild- moderate aortic regurgitation. Moderate-severe mitral regurgitation. Mild tricuspid regurgitation. Estimated RVSP was 31 mmHg. No pulmonary hypertension. There is no evidence of a PFO with agitated saline contrast.Mitral valve regurgitation increased from previous. Re-check TTE. Qualifiers: Atrial fibrillation type: paroxysmal Qualified Code(s): I48.0 - Paroxysmal atrial fibrillation (2) Wide-complex tachycardia Current Visit: Yes Status: Acute Telemetry review shows 12 beat run of wide complex tachycardia. ICD in place. Will check TTE. Continue carvedilol as tolerated. Potassium 4.3. Keep above 4.0. Check magnesium and keep above 2.0. (3) Ischemic cardiomyopathy Current Visit: No Status: Chronic H/o ischemic cardiomyopathy. EF 35% 06/2015. EF improved to 55% 04/2016. Mild edema noted on ankles likely secondary to surgery and fluid. Caution with IV fluid. TTE repeat pending. Stop arb due to hypotension. (4) CAD (coronary artery disease) Current Visit: No Status: Chronic H/o PCI. Last [facility] in 2009 with PCI to her circumflex and distal RCA. Moderate non-obstructive disease remaining. Ok to hold effient. Continue asa, statin, and bb as tolerated. Qualifiers: Coronary Disease-Associated Artery/Lesion type: [place] artery [place] vs. transplanted heart: [place] heart Associated angina: without angina Qualified Code(s): I25.10 - Atherosclerotic heart disease of [place] coronary artery without angina pectoris Discussion w patient/family: The assessment and plan as outlined above was discussed with the patient and/or family members who expressed understanding and agreement. All questions were answered. Thank you for involving us in the care of your patient. Please call with any questions. History of Present Illness Consult date: 05/20/17 Requesting physician: Gray Rock Consult reason: afib Chief complaint: palpitations History of present illness: Ms. Hinson is a 76 year old female here for planned bilateral mastectomy due to breast cancer. She has a history of atrial fibrillation, CAD s/p previous PCI , systolic CHF that improved, mitral regurgitation, CHF, ICD, HTN, and HLD. Cardiology consulted for atrial fibrillation. H/o PAF. She declined AC in the past for afib. She is on effient for history of previous stents. Last [facility] in 2009 with PCI. Patient is found to have acute blood loss anemia and is hypotensive. She is currently receiving a fluid bolus. She denies chest pain or SOB. C/o intermittent palpitations. Previous cardiac testing: TTE 04/2016-LVEF 50%. There is evidence of mild diastolic dysfunction of the left ventricle. Normal right ventricular size and function. Mild- moderate aortic regurgitation. Moderate-severe mitral regurgitation. Mild tricuspid regurgitation. Estimated RVSP was 31 mmHg. No pulmonary hypertension. There is no evidence of a PFO with agitated saline contrast. A linear echodensity consistent with a pacer lead was seen in the right atrium and right ventricle. Since prior study, 05/11/2015, LV systolic function has improved. Degree of mitral regurgitation is worse. Consider CYRIL for evaluation of mitral valve. MUGA scan 06/2015- EF 35% Holter monitor08/2016- 10 runs of wide complex tachycardia at 152 bpm. Wide complex VT vs SVT with abberancy. Past Med Surg Social Fam HX - Past Medical History Medical history: arthritis, COPD, diabetes, hyperlipidemia, hypertension, myocardial infarction, other Psychiatric history: no psych history - Past Surgical History Surgical History: angioplasty/stent, cholecystectomy, hysterectomy, orthopedic, other, other - Social History Smoking Status: Never smoker Smokeless Tobacco Status: No Alcohol use: none Drug use: none - Family History Father Adopted: No Family Member Ethnicity: Non- Living Status: Age at : 89 Cause of : Old age, body gave out Hx Family Cardiac Disorders: No Hx Family Respiratory Disorders: No Hx Family Cancer: Yes Hx Family GI Disorders: No Hx Family Endocrine Disorder: No Hx Family Neuromuscular Disorders: No Hx Family Neurologic Disorders: No Hx Family HEENT Disorders: No Hx Family Autoimmune Disorders: No Mother Living Status: Age at : 92 Cause of : Pancreatic cancer Hx Family Cancer: Yes Medications and Allergies Fesoterodine Fumarate [Toviaz] 4 mg PO DAILY 05/10/15 [History] Glimepiride [Amaryl] 1 mg PO PRN PRN 05/10/15 [History] Linagliptin [Tradjenta] 5 mg PO DAILY 05/10/15 [History] TraMADol [Ultram] 50 mg PO Q6HR PRN 05/10/15 [History] Valsartan [Diovan] 80 mg PO DAILY 05/10/15 [History] Aspirin Enteric Coated [Aspirin EC] 81 mg PO DAILY #30 tablet. 05/12/15 [Rx] Prasugrel [Effient] 10 mg PO DAILY #30 tablet 05/12/15 [Rx] Furosemide [Lasix] 40 mg PO BID 08/13/15 [History] Isosorbide MONOnitrate (24 HR) [Imdur] 30 mg PO DAILY 08/13/15 [History] Carvedilol [Coreg] 12.5 mg PO BIDWM 10/17/16 [History] Cholecalciferol (D-3) [Vitamin D] 5,000 unit PO DAILY 10/17/16 [History] Atorvastatin [Lipitor] 40 mg PO HS 03/10/17 [History] MOM Conc [MILK OF MAGNESIA conc] 10 ml PO DAILY PRN 04/13/17 [History] Nitroglycerin [Nitrostat] 1 tab SL DAILY PRN 04/13/17 [History] Simethicone [Gas-X] 80 mg PO DAILY PRN 04/13/17 [History] Docusate [Colace] 100 mg PO BID #30 capsule 05/19/17 [Rx] OxyCODONE/APAP 5/325 [Percocet 5/325 MG] 1 each PO Q4HR PRN #30 tablet 05/19/17 [Rx] 3 Allergy/AdvReac Type Severity Reaction Status Date / Time codeine Allergy Unknown heart races Verified 04/27/17 14:25 lisinopril Allergy Cough Verified 04/27/17 14:25 All Systems Review: A 10-system review of systems was performed and is negative for pertinent findings except as documented above in the HPI. Physical Examination Vital Signs, Last 4 Hours Temp Pulse Resp BP Pulse Ox 05/20/17 12:05 98.5 F 69 16 79/42 98 General: Conversant, No Apparent Distress HEENT: Atraumatic, Normocephaly, Mucus Membranes Moist Neck: No JVD, Normal carotid pulses Cardiac: Reg Rate and Rhythm, Normal S1 and S2, No Murmur, Other (Kerlix wrap and dressing intact around chest. JESSICA drain intact with bloody drainage.) Lungs: Normal Breath Sounds, No Wheeze, Rales, Rhonchi Neuro: Alert and responsive, No focal deficits noted Abdomen: Soft, Non-Tender Skin: No rashes noted on visualized skin Musculoskeletal: No Chest Wall Tenderness Extremities: No Clubbing, No Cyanosis, No Edema, Normal Pulses Results 05/20/17 07:27 05/20/17 07:27 Lab Results 05/19/17 05/20/17 05/20/17 15:50 07:27 07:27 WBC 12.2 H Hgb 8.5 L 8.0 L Hct 25.7 L 24.5 L Plt Count 177 Sodium 139 Potassium 4.3 Chloride 106 Carbon Dioxide 20 BUN 36 H Creatinine 1.28 H Glucose 126 H Calcium 8.1 L - Imaging and Cardiology Echo: report reviewed - EKG Interpretation EKG results cardiology: personally reviewed Consult Discharge Plan - Plan Additional Instructions: #1 may shower 05/20/17, no tub bath for 2 weeks (pin drains up using a lanyard or equivalent) #2 wash incisions with soap and water and pat dry daily #3 no lifting, pushing, pulling more than 15 pounds for the next 2 weeks #4 no driving until off narcotics for 24 hours and able to safely react in the car #5 may climb stairs Wound care- cleanse incision and around drains with soap and water and pat dry, apply split 4X4 gauze to drains X 2, apply ABD pad X 2 to left chest incision, wrap with rohit bandage and secure daily and prn if soiled. Referrals: Gray Rock MD [Partnered Physician] - 06/02/17 1:00 pm Shantal Teague CNP [Advanced Practice Nurse] - 05/25/17 9:30 am (surgery follow-up) Prescriptions: OxyCODONE/APAP 5/325 [Percocet 5/325 MG] 1 each PO Q4HR PRN #30 tablet PRN Reason: Pain Docusate [Colace] 100 mg PO BID #30 capsule <Luke Tsai - Last Filed: 05/20/17 14:23> Date of Encounter: 05/20/17 - Attending Attestation I have personally performed a face to face evaluation on this patient. I have reviewed and agree with the care plan. History and Exam by me shows: Known CM S/P ICD. She is s/p mastectomy. Noted to have some PAF and NSVT on monitor. BPs have been somwhat low but she appears aymptomatic. Would hold all BP meds except coreg if possible. Correct electrolytes. Agree with transfusion. Assessment and Plan Discussion w patient/family: The assessment and plan as outlined above was discussed with the patient and/or family members who expressed understanding and agreement. All questions were answered. Thank you for involving us in the care of your patient. Please call with any questions. History of Present Illness History of present illness: Ms. Hinson is a 76 year old female All Systems Review: A 10-system review of systems was performed and is negative for pertinent findings except as documented above in the HPI. Physical Examination Vital Signs, Last 4 Hours Temp Pulse Resp BP Pulse Ox 05/20/17 12:05 98.5 F 69 16 79/42 98 Results 05/20/17 07:27 05/20/17 07:27 Lab Results 05/19/17 05/20/17 05/20/17 15:50 07:27 07:27 WBC 12.2 H Hgb 8.5 L 8.0 L Hct 25.7 L 24.5 L Plt Count 177 Sodium 139 Potassium 4.3 Chloride 106 Carbon Dioxide 20 BUN 36 H Creatinine 1.28 H Glucose 126 H Calcium 8.1 L
[2017-05-20] MEDS ORDERED: 0.9 % Sodium Chloride 250 ML ONE ×2 (16:21→21:26)
[2017-05-20] MEDS: *HR* OxyCODONE/APAP 5/325 TABLET PO PRN (17:13)
[2017-05-21] MEDS: Insulin LISPRO 300 UNITS/3 ML VIAL SQ SCH ×5 (01:12→20:25)
[2017-05-21] MEDS: *HR* OxyCODONE/APAP 5/325 TABLET PO PRN ×4 (01:21→20:24)
[2017-05-21] MEDS: *HR* Heparin 5,000 UNIT/ML VIAL SQ SCH ×2 (05:22→16:49)
[2017-05-21] MEDS: Isosorbide MONOnitrate (24 HR) 30 MG TAB.ER.24H PO SCH (08:21)
[2017-05-21] MEDS: Aspirin Enteric Coated 81 MG Tablet PO SCH (08:23)
[2017-05-21] MEDS: 0.9 % Sodium Chloride 1,000 ML IVC SCH (08:24)
[2017-05-21] MEDS: (Linagliptin [Tradjenta] 5 MG) PO SCH (08:26)
[2017-05-21] MEDS: Furosemide 40 MG TABLET PO SCH ×2 (08:30→16:49)
--- NOTE | 2017-05-21 10:04 | General Surgery Progress Note ---
Date of Encounter: 05/21/17 Time of Encounter: 09:35 - Assessment and Plan (1) Acute blood loss anemia Current Visit: Yes Status: Acute The hemoglobin is 8.0 hematocrit is 24.5%. This represents a drop from yesterday. She continues on anticoagulation with heparin. I do not think that she is ready to transition to oral Effient at this point. I like to see if her hemoglobin stabilizes. (2) Acute blood loss as cause of postoperative anemia Current Visit: Yes Status: Acute Acute blood loss anemia secondary to anticoagulation and mastectomy. We will continue to follow her hemoglobin closely. 05/21/2017 the patient was transfused 2 units of packed red blood cells for acute postoperative blood loss anemia. Blood loss was secondary to anticoagulation as well as complicated mastectomy. Follow-up CBC pending (3) Breast cancer in female Current Visit: Yes Status: Acute The patient underwent left modified radical mastectomy. She continues to have sanguinous drainage from the Curtis-Mattson drains 05/21/2017. The patient is doing well with sanguinous Curtis-Mattson drainage. She should be ready for discharge tomorrow. Qualifiers: Breast location: unspecified site of breast Estrogen receptor status: unspecified Laterality: left Qualified Code(s): C50.912 - Malignant neoplasm of unspecified site of left female breast (4) Atrial fibrillation with rapid ventricular response Current Visit: Yes Status: Resolved The patient had several runs of broad complex tachycardia yesterday. She also had episodes of hypotension. Cardiology consultation was obtained. Consultation is much appreciated. We will continue to follow along with cardiology as her condition stabilizes during the postoperative period Subjective Narrative: The patient feels well today with very little pain. She continues to have decreasing amounts of serosanguineous drainage from her Curtis-Mattson drains. Yesterday she experienced hypotension in the morning. She had several runs of wide complex tachycardia yesterday. Based on this I obtained a cardiology consultation. Consultation is much appreciated. She was transfused for blood loss anemia area follow-up CBC is pending. Would also want to check a BMP to make sure that she has no electrolyte abnormalities that may result in this level of arrhythmia. Continue to observe her very closely today to make sure that her heart rate and blood pressure remained stable. Objective Vital Signs - Last 8 Hours Temp Pulse Resp BP Pulse Ox 05/21/17 08:53 97 05/21/17 07:14 97.9 F 62 16 122/48 97 05/21/17 04:22 97.8 F 67 16 164/73 100 Intake and Output 05/20/17 05/21/17 05/21/17 23:59 07:59 15:59 Intake Total 350 / 350 900 / 900 380 / 380 Output Total 130 / 130 400 / 400 30 / 30 Balance 220 / 220 500 / 500 350 / 350 Intake: IV Fluids 0 / 0 380 / 380 0.9 % Sodium Chloride 1,000 ML 0 / 0 380 / 380 @ 50 mls/hr IVC .Q20H [facility] Rx#: [id number] Oral 600 / 600 Blood Product 350 / 350 300 / 300 Rbcs Leuko Poor As-1 Unit 0 / 0 300 / 300 [id number] Rbcs Leuko Poor As-1 Unit 350 / 350 [id number] Output: Urine 300 / 300 Wound Drainage 130 / 130 100 / 100 30 / 30 Left Breast 70 / 70 40 / 40 20 / 20 Left Distal Breast 60 / 60 60 / 60 10 / 10 Other: # Urine Diapers 1 Weight 109 kg Blood Glucose* 153 114 Patient Weight 05/21/17 23:59 Weight 109 kg - General physical appearance well developed, well nourished, chronically ill, obese - Respiratory normal expansion, normal respiratory effort, clear to percussion, clear to auscultation - Cardiovascular Cardiovascular exam: Present: irregular rhythm, no murmurs/rubs/gallops - Abdomen Abdomen: Present: bowel sounds present, soft, non tender - Incision Incision: Present: clean and dry (Sanguinous Curtis-Mattson drainage) - Neurologic normal coordination, normal sensation - Psychiatric oriented to time, oriented to person, oriented to place, speech is normal, memory intact - Labs 05/20/17 07:27 05/20/17 07:27 - VTE Documentation of Mechanical Device: Intermittent pneumatic compression device Consult Discharge Plan - Plan Additional Instructions: #1 may shower 05/20/17, no tub bath for 2 weeks (pin drains up using a lanyard or equivalent) #2 wash incisions with soap and water and pat dry daily #3 no lifting, pushing, pulling more than 15 pounds for the next 2 weeks #4 no driving until off narcotics for 24 hours and able to safely react in the car #5 may climb stairs Wound care- cleanse incision and around drains with soap and water and pat dry, apply split 4X4 gauze to drains X 2, apply ABD pad X 2 to left chest incision, wrap with rohit bandage and secure daily and prn if soiled. Referrals: Gray Rock MD [Partnered Physician] - 06/02/17 1:00 pm Shantal Teague CNP [Advanced Practice Nurse] - 05/25/17 9:30 am (surgery follow-up) Prescriptions: OxyCODONE/APAP 5/325 [Percocet 5/325 MG] 1 each PO Q4HR PRN #30 tablet PRN Reason: Pain Docusate [Colace] 100 mg PO BID #30 capsule
[2017-05-21 10:05] LABS: Basophils # 0.1 K/mcL (0.0-0.2); Basophils % 0.8 %; Eosinophils # 0.2 K/mcL (0.0-0.6); Eosinophils % 3.7 %; Hematocrit 24.3 % (35.3-44.9); Immature Granulocytes % 0.5 % (0-4); Lymphocytes # 1.3 K/mcL (0.6-4.6); Lymphocytes % 21.4 %; Mean Corpuscular HGB Conc 32.9 g/dL (31.6-35.5); Mean Corpuscular Hemoglobin 29.4 pg (28.0-33.3); Mean Corpuscular Volume 89.3 fL (83.0-100.0); Mean Platelet Volume 10.7 fL (9.4-12.4); Monocytes # 0.5 K/mcL (0.0-1.3); Monocytes % 8.8 %; Neutrophils # 3.9 K/mcL (1.6-8.9); Platelet Count 115 K/mcL (140-400); Red Blood Count 2.72 M/mcL (3.82-4.97); Red Cell Distribution Width 15.7 % (11.5-14.5); Segmented Neutrophils % 64.8 %
[2017-05-21 10:15] LABS: Potassium 4.7 mEq/L (3.5-4.5)
--- NOTE | 2017-05-21 13:55 | Cardiology Progress Note ---
Date of Encounter: 05/21/17 Time of Encounter: 14:00 Assessment and Plan (1) Breast cancer in female Current Visit: Yes Status: Acute Per Cardiology: S/p left modified radical mastectomy. Qualifiers: Breast location: unspecified site of breast Estrogen receptor status: unspecified Laterality: left Qualified Code(s): C50.912 - Malignant neoplasm of unspecified site of left female breast (2) Acute blood loss anemia Current Visit: Yes Status: Acute Per Cardiology: Management per surgery: transfused 2 units of packed red blood cells for acute postoperative blood loss anemia. On asa and SQ Hep.-- monitor closely. (3) Afib Current Visit: Yes Status: Acute Per Cardiology: Short periods of paroxysmal atrial fibrillation seen. Likely due to missed carvedilol doses in the setting of hypotension. Remains SR-- avg HR on tele past 12 hrs 61, SR, no afib noted. On Coreg 12.5mg PO BID. SBP 100's - 110's. Diovan off for now. [place] BB as needed. Hgb down to 8 from 11.8. S/p transfusion. Recommend keep Hgb 10 in the setting of CAD. Surgery following. Declined AC in the past. Currently not a candidate due to acute anemia. On asa only for now. Patient aware of increased stroke risk. TTE 04/2016:LVEF 50%. There is evidence of mild diastolic dysfunction of the left ventricle Normal right ventricular size and function. Mild- moderate aortic regurgitation. Moderate-severe mitral regurgitation. Mild tricuspid regurgitation. Estimated RVSP was 31 mmHg. No pulmonary hypertension. There is no evidence of a PFO with agitated saline contrast.Mitral valve regurgitation increased from previous. Will consider repeat echo as outpatient-- unable to perform currently d/t recent L mastectomy. Cardiology will s/o, reconsult PRN, all questions answered. Discussed with Dr. Shu Tsai. Qualifiers: Atrial fibrillation type: paroxysmal Qualified Code(s): I48.0 - Paroxysmal atrial fibrillation (4) Wide-complex tachycardia Current Visit: Yes Status: Acute Per Cardiology: Telemetry reviewed and shows 12 beat run of wide complex tachycardia. ICD in place-- was not moved prior to surgery. K+ and Mg+ stable. On BB. (5) CAD (coronary artery disease) Current Visit: No Status: Chronic Per Cardiology: H/o PCI. Last [facility] in 2009 with PCI to her circumflex and distal RCA. Moderate non-obstructive disease remaining. On asa, statin, and bb. Patient reports was on Effient as outpatient-- last stent over 1 year ago. Continue to hold for now- - will address in outpatient setting. Qualifiers: Coronary Disease-Associated Artery/Lesion type: [place] artery [place] vs. transplanted heart: [place] heart Associated angina: without angina Qualified Code(s): I25.10 - Atherosclerotic heart disease of [place] coronary artery without angina pectoris Discussion w patient/family: The assessment and plan as outlined above was discussed with the patient and/or family members who expressed understanding and agreement. All questions were answered. Thank you for involving us in the care of your patient. Please call with any questions. Subjective Principal diagnosis: PAF Interval history: Patient denies any palpitations, shortness of breath, chest pain. Reports mild left sided pain from surgery. Objective Vital Signs, Last 4 Hours Temp Pulse Resp BP Pulse Ox 05/21/17 11:06 97.7 F 59 16 102/61 95 General: Conversant, No Apparent Distress Cardiac: Reg Rate and Rhythm, Normal S1 and S2, No Murmur Lungs: Normal Breath Sounds, No Wheeze, Rales, Rhonchi Neuro: Alert and responsive, No focal deficits noted Skin: Other (Left CW drsg D&I) Results 05/21/17 09:44 05/21/17 09:44 Lab Results Laboratory Tests 04/10/17 05/19/17 05/19/17 13:15 04:36 04:36 Hgb 8.4 L Hct 26.9 L Plt Count 191 Creatinine 1.58 H Est GFR (Non-Af Amer) 48 L Magnesium 05/20/17 05/21/17 05/21/17 14:17 09:44 09:44 Hgb 8.0 L Hct 24.3 L Plt Count 115 L Creatinine 1.12 H Est GFR (Non-Af Amer) 47 L Magnesium 1.7 Active Medications Aspirin (Aspirin Ec) 81 mg PO DAILY [facility]A Stop: 11/18/17 09:01 Last Admin: 05/21/17 08:23 Dose: 81 mg Atorvastatin Calcium (Lipitor) 40 mg PO HS AKILA Stop: 11/17/17 21:01 Last Admin: 05/20/17 20:05 Dose: 40 mg Carvedilol (Coreg) 12.5 mg PO BIDWM AKILA PRN Reason: Protocol Stop: 11/17/17 17:56 Last Admin: 05/21/17 08:21 Dose: 12.5 mg Dextrose/Water (Dextrose 50% (Syg)) 25 ml IVP AD PRN PRN Reason: Hypoglycemia Stop: 11/18/17 10:36 Furosemide (Lasix) 40 mg PO BIDDIURETIC AKILA Stop: 11/17/17 21:01 Last Admin: 05/21/17 08:30 Dose: 40 mg Glimepiride (Amaryl) 1 mg PO DAILY PRN PRN Reason: HIGH BLOOD SUGAR Stop: 11/17/17 17:56 Glucagon (Glucagen) 1 mg IM ONCE PRN PRN Reason: Hypoglycemia Stop: 11/18/17 10:36 Glucose (Gluctose) 15 gm PO ONCE PRN PRN Reason: Hypoglycemia Stop: 11/18/17 10:36 Glucose (Gluctose) 30 gm PO ONCE PRN PRN Reason: Hypoglycemia Stop: 11/18/17 10:36 Heparin Sodium (Porcine) (Heparin) 5,000 unit SQ Q12HR [facility] Stop: 11/17/17 18:01 Last Admin: 05/21/17 05:22 Dose: Not Given Hydromorphone HCl (Dilaudid) 1 mg IVP Q1H PRN PRN Reason: SEE COMMENTS Stop: 11/17/17 16:41 Last Admin: 05/20/17 16:01 Dose: 1 mg Sodium Chloride (0.9 % Sodium Chloride) 1,000 mls @ 50 mls/hr IVC .Q20H [facility] Stop: 11/17/17 16:46 Last Admin: 05/21/17 08:24 Dose: 50 mls/hr Dextrose (Dextrose 5%) 1,000 mls @ 100 mls/hr IVC .Q10H PRN PRN Reason: HYPOGLYCEMIA Stop: 11/18/17 10:36 Insulin Human Lispro (Humalog) 0 units SQ HS [facility] PRN Reason: Protocol Stop: 11/18/17 21:01 Last Admin: 05/21/17 01:12 Dose: Not Given Insulin Human Lispro (Humalog) 0 units SQ TIDAC [facility] PRN Reason: Protocol Stop: 11/18/17 11:31 Last Admin: 05/21/17 12:59 Dose: 4 units Isosorbide Mononitrate (Imdur) 30 mg PO DAILY [facility] Stop: 11/18/17 09:01 Last Admin: 05/21/17 08:21 Dose: 30 mg (Linagliptin [ (Tradjenta] 5 Mg)) 5 mg PO DAILY [facility] Stop: 11/18/17 09:01 Last Admin: 05/21/17 08:26 Dose: Not Given Ondansetron HCl (Zofran) 4 mg IVP Q6HR PRN PRN Reason: Nausea And Vomiting Stop: 11/17/17 16:41 Oxybutynin Chloride (Ditropan) 5 mg PO BID [facility] Stop: 11/18/17 09:01 Last Admin: 05/21/17 08:21 Dose: 5 mg Oxycodone/Acetaminophen (Percocet 5/325) 1 each PO Q4HR PRN PRN Reason: Pain (1-5) Stop: 11/17/17 16:41 Last Admin: 05/21/17 13:02 Dose: 1 each Simethicone (Gas-X) 80 mg PO TID PRN PRN Reason: Dyspepsia Stop: 11/18/17 20:54 Last Admin: 05/19/17 21:09 Dose: 80 mg - EKG Interpretation EKG results cardiology: other (tele reveiwed) - VTE Documentation of Mechanical Device: Intermittent pneumatic compression device Consult Discharge Plan - Plan Additional Instructions: #1 may shower 05/20/17, no tub bath for 2 weeks (pin drains up using a lanyard or equivalent) #2 wash incisions with soap and water and pat dry daily #3 no lifting, pushing, pulling more than 15 pounds for the next 2 weeks #4 no driving until off narcotics for 24 hours and able to safely react in the car #5 may climb stairs Wound care- cleanse incision and around drains with soap and water and pat dry, apply split 4X4 gauze to drains X 2, apply ABD pad X 2 to left chest incision, wrap with rohit bandage and secure daily and prn if soiled. Referrals: Gray Rock MD [Partnered Physician] - 06/02/17 1:00 pm Shantal Teague CNP [Advanced Practice Nurse] - 05/25/17 9:30 am (surgery follow-up) Prescriptions: OxyCODONE/APAP 5/325 [Percocet 5/325 MG] 1 each PO Q4HR PRN #30 tablet PRN Reason: Pain Docusate [Colace] 100 mg PO BID #30 capsule
[2017-05-21] MEDS: *HR* HYDROmorphone (PF) 1 MG/ML SYRINGE IVP PRN (23:25)
[2017-05-22] MEDS: 0.9 % Sodium Chloride 1,000 ML IVC SCH ×2 (04:42→19:29)
[2017-05-22] MEDS: *HR* Heparin 5,000 UNIT/ML VIAL SQ SCH ×2 (07:46→16:31)
[2017-05-22 09:35] LABS: Alanine Aminotransferase 9 Units/L (0-55); Albumin 2.8 g/dL (3.5-5.0); Albumin/Globulin Ratio 0.8 (1.1-2.2); Alkaline Phosphatase 54 Units/L (38-126); Aspartate Amino Transferase 24 Units/L (5-34); BUN/Creatinine Ratio 33 (6-26); Bilirubin,Total 1.3 mg/dL (0.2-1.2); Blood Urea Nitrogen 32 mg/dL (7-20); Calcium 8.4 mg/dL (8.6-10.8); Carbon Dioxide 26 mEq/L (19-29); Chloride 107 mEq/L (98-109); Globulin 3.6 g/dL (2.4-3.5); Glucose 117 mg/dL (70-99); Osmolality,Calculated 300 (280-300); Potassium 3.8 mEq/L (3.5-4.5); Sodium 141 mEq/L (136-145); Total Protein 6.4 g/dL (6.0-8.3); eGFR For African Americans > 60 (> 60); eGFR For Non-African Americans 56 (> 60)
[2017-05-22] MEDS: Insulin LISPRO 300 UNITS/3 ML VIAL SQ SCH ×4 (09:37→21:19)
[2017-05-22] MEDS: Isosorbide MONOnitrate (24 HR) 30 MG TAB.ER.24H PO SCH (09:42)
[2017-05-22] MEDS: Furosemide 40 MG TABLET PO SCH ×2 (09:42→16:31)
[2017-05-22] MEDS: Aspirin Enteric Coated 81 MG Tablet PO SCH (09:42)
[2017-05-22] MEDS: (Linagliptin [Tradjenta] 5 MG) PO SCH (09:43)
[2017-05-22] MEDS: *HR* OxyCODONE/APAP 5/325 TABLET PO PRN (09:46)
[2017-05-22 09:50] LABS: Basophils % 0.3 %; Eosinophils # 0.2 K/mcL (0.0-0.6); Eosinophils % 2.8 %; Hematocrit 26.6 % (35.3-44.9); Hemoglobin 8.6 g/dL (11.5-15.4); Immature Granulocytes % 0.7 % (0-4); Lymphocytes # 1.3 K/mcL (0.6-4.6); Mean Corpuscular HGB Conc 32.3 g/dL (31.6-35.5); Mean Corpuscular Hemoglobin 29.5 pg (28.0-33.3); Mean Corpuscular Volume 91.1 fL (83.0-100.0); Mean Platelet Volume 10.6 fL (9.4-12.4); Monocytes # 0.9 K/mcL (0.0-1.3); Monocytes % 11.8 %; Neutrophils # 4.9 K/mcL (1.6-8.9); Platelet Count 126 K/mcL (140-400); Red Blood Count 2.92 M/mcL (3.82-4.97); Red Cell Distribution Width 15.5 % (11.5-14.5); Segmented Neutrophils % 66.4 %
[2017-05-22] MEDS: *HR* HYDROmorphone (PF) 1 MG/ML SYRINGE IVP PRN (12:47)
--- NOTE | 2017-05-22 14:00 | General Surgery Progress Note ---
<Luiz Cassidy - Last Filed: 05/22/17 13:57> Date of Encounter: 05/22/17 Time of Encounter: 10:00 - Assessment and Plan (1) Atrial fibrillation with rapid ventricular response Current Visit: Yes Status: Resolved - History of paroxysmal atrial fibrillation with rapid ventricular response - Currently in normal sinus rhythm with a rate of 62 - Cardiology consulted yesterday, suspect A. fib RVR etiology of missed carvedilol doses in the setting of hypotension - Cardiology recommends holding valsartan and titrating beta shrerill as tolerated. Appreciate recommendations (2) Breast cancer in female Current Visit: Yes Status: Chronic - Postop day #4 of left modified mastectomy - Wound healing well without evidence of infection. No erythema, purulent drainage, fevers, chills - Completed by postop anemia in the setting of acute blood loss - JESSICA drains in place draining serosanguineous fluid, draining 170 mL, decreased from previous 225 ml. - Further management as below Qualifiers: Breast location: unspecified site of breast Estrogen receptor status: unspecified Laterality: left Qualified Code(s): C50.912 - Malignant neoplasm of unspecified site of left female breast (3) Acute blood loss as cause of postoperative anemia Current Visit: Yes Status: Acute - H/H of 8.6/26.6 this a.m, improved from 8.0 yesterday morning - Per cardiology, who recommends hemoglobin above 10.0 in the setting of CAD - Was anticoagulated after surgery. - Status post 2 units on 05/20 - We will give an additional 2 units of packed red blood cells this afternoon Subjective Patient reports: no new complaints, feels better, pain is less, voiding w/o difficulty, afebrile Narrative: Ms. Hinson is a 76-year-old female with past medical history of breast cancer who is postop day #4 from left modified mastectomy. She reports she is doing well with no complaints at this time of pain, drainage, fevers, chills, difficulty breathing. She does state that the compression wrappings are irritating her a little bit. She is otherwise doing well. JESSICA drain with serosanguineous output of 145 ml. Surgical incision site healing well with good approximation and no evidence of infection. Objective Vital Signs - Last 8 Hours Temp Pulse Resp BP Pulse Ox 05/22/17 11:38 98.0 F 72 14 115/62 97 05/22/17 07:17 97.8 F 62 14 126/64 100 Intake and Output 05/21/17 05/22/17 05/22/17 23:59 07:59 15:59 Intake Total 897 / 897 583 / 583 120 / 120 Output Total 485 / 485 920 / 920 350 / 350 Balance 412 / 412 -337 / -337 -230 / -230 Intake: IV Fluids 417 / 417 583 / 583 0.9 % Sodium Chloride 1,000 ML 417 / 417 583 / 583 @ 50 mls/hr IVC .Q20H [facility] Rx#: [id number] Oral 480 / 480 0 / 0 120 / 120 Output: Urine 450 / 450 800 / 800 300 / 300 Wound Drainage 35 / 35 120 / 120 50 / 50 Left Breast 20 / 20 100 / 100 45 / 45 Left Distal Breast 15 / 15 20 / 20 5 / 5 Other: Meal Dinner Lunch Percent of Meal Consumed 25% 75% # Urine Diapers 1 Weight 108 kg Blood Glucose* 156 113 129 Patient Weight 05/22/17 23:59 Weight 108 kg - General physical appearance well developed, well nourished, no distress, no pain - Respiratory normal expansion, clear to auscultation - Cardiovascular Cardiovascular exam: Present: RRR, no murmurs/rubs/gallops - Incision Incision: Present: clean and dry, intact, approximated. Absent: draining, erythema, purulent - Labs 05/22/17 09:37 05/22/17 09:06 Diabetes panel 05/22/17 Range/Units 09:06 Sodium 141 (136-145) mEq/L Potassium 3.8 (3.5-4.5) mEq/L Chloride 107 (98-109) mEq/L Carbon Dioxide 26 (19-29) mEq/L BUN 32 H (7-20) mg/dL Creatinine 0.96 (0.57-1.11) mg/dL Glucose 117 H (70-99) mg/dL Calcium 8.4 L (8.6-10.8) mg/dL AST 24 (5-34) Units/L ALT 9 (0-55) Units/L Alkaline Phosphatase 54 (38-126) Units/L Albumin 2.8 L (3.5-5.0) g/dL Calcium panel 05/22/17 Range/Units 09:06 Calcium 8.4 L (8.6-10.8) mg/dL Albumin 2.8 L (3.5-5.0) g/dL Pituitary panel 05/22/17 Range/Units 09:06 Sodium 141 (136-145) mEq/L Potassium 3.8 (3.5-4.5) mEq/L Chloride 107 (98-109) mEq/L Carbon Dioxide 26 (19-29) mEq/L BUN 32 H (7-20) mg/dL Creatinine 0.96 (0.57-1.11) mg/dL Glucose 117 H (70-99) mg/dL Calcium 8.4 L (8.6-10.8) mg/dL Adrenal panel 05/22/17 Range/Units 09:06 Sodium 141 (136-145) mEq/L Potassium 3.8 (3.5-4.5) mEq/L Chloride 107 (98-109) mEq/L Carbon Dioxide 26 (19-29) mEq/L BUN 32 H (7-20) mg/dL Creatinine 0.96 (0.57-1.11) mg/dL Glucose 117 H (70-99) mg/dL Calcium 8.4 L (8.6-10.8) mg/dL Total Bilirubin 1.3 H (0.2-1.2) mg/dL AST 24 (5-34) Units/L ALT 9 (0-55) Units/L Alkaline Phosphatase 54 (38-126) Units/L Albumin 2.8 L (3.5-5.0) g/dL - VTE Documentation of Mechanical Device: Intermittent pneumatic compression device Consult Discharge Plan - Plan Additional Instructions: #1 may shower 05/20/17, no tub bath for 2 weeks (pin drains up using a lanyard or equivalent) #2 wash incisions with soap and water and pat dry daily #3 no lifting, pushing, pulling more than 15 pounds for the next 2 weeks #4 no driving until off narcotics for 24 hours and able to safely react in the car #5 may climb stairs Wound care- cleanse incision and around drains with soap and water and pat dry, apply split 4X4 gauze to drains X 2, apply ABD pad X 2 to left chest incision, wrap with rohit bandage and secure daily and prn if soiled. Referrals: Gray Rock MD [Partnered Physician] - 06/02/17 1:00 pm Shantal Teague CNP [Advanced Practice Nurse] - 05/25/17 9:30 am (surgery follow-up) Prescriptions: OxyCODONE/APAP 5/325 [Percocet 5/325 MG] 1 each PO Q4HR PRN #30 tablet PRN Reason: Pain Docusate [Colace] 100 mg PO BID #30 capsule <Gray Rock - Last Filed: 05/22/17 14:46> Date of Encounter: 05/22/17 - Assessment and Plan (1) Acute blood loss anemia Current Visit: Yes Status: Acute (2) Acute blood loss as cause of postoperative anemia Current Visit: Yes Status: Acute (3) Breast cancer in female Current Visit: Yes Status: Chronic Qualifiers: Breast location: unspecified site of breast Estrogen receptor status: unspecified Laterality: left Qualified Code(s): C50.912 - Malignant neoplasm of unspecified site of left female breast (4) Atrial fibrillation with rapid ventricular response Current Visit: Yes Status: Resolved Objective Vital Signs - Last 8 Hours Temp Pulse Resp BP Pulse Ox 05/22/17 11:38 98.0 F 72 14 115/62 97 05/22/17 07:17 97.8 F 62 14 126/64 100 Intake and Output 05/21/17 05/22/17 05/22/17 23:59 07:59 15:59 Intake Total 897 / 897 583 / 583 120 / 120 Output Total 485 / 485 920 / 920 350 / 350 Balance 412 / 412 -337 / -337 -230 / -230 Intake: IV Fluids 417 / 417 583 / 583 0.9 % Sodium Chloride 1,000 ML 417 / 417 583 / 583 @ 50 mls/hr IVC .Q20H [facility] Rx#: [id number] Oral 480 / 480 0 / 0 120 / 120 Output: Urine 450 / 450 800 / 800 300 / 300 Wound Drainage 35 / 35 120 / 120 50 / 50 Left Breast 20 / 20 100 / 100 45 / 45 Left Distal Breast 15 / 15 20 / 20 5 / 5 Other: Meal Dinner Lunch Percent of Meal Consumed 25% 75% # Urine Diapers 1 Weight 108 kg Blood Glucose* 156 113 129 Patient Weight 05/22/17 23:59 Weight 108 kg - Labs 05/22/17 09:37 05/22/17 09:06 Diabetes panel 05/22/17 Range/Units 09:06 Sodium 141 (136-145) mEq/L Potassium 3.8 (3.5-4.5) mEq/L Chloride 107 (98-109) mEq/L Carbon Dioxide 26 (19-29) mEq/L BUN 32 H (7-20) mg/dL Creatinine 0.96 (0.57-1.11) mg/dL Glucose 117 H (70-99) mg/dL Calcium 8.4 L (8.6-10.8) mg/dL AST 24 (5-34) Units/L ALT 9 (0-55) Units/L Alkaline Phosphatase 54 (38-126) Units/L Albumin 2.8 L (3.5-5.0) g/dL Calcium panel 05/22/17 Range/Units 09:06 Calcium 8.4 L (8.6-10.8) mg/dL Albumin 2.8 L (3.5-5.0) g/dL Pituitary panel 05/22/17 Range/Units 09:06 Sodium 141 (136-145) mEq/L Potassium 3.8 (3.5-4.5) mEq/L Chloride 107 (98-109) mEq/L Carbon Dioxide 26 (19-29) mEq/L BUN 32 H (7-20) mg/dL Creatinine 0.96 (0.57-1.11) mg/dL Glucose 117 H (70-99) mg/dL Calcium 8.4 L (8.6-10.8) mg/dL Adrenal panel 05/22/17 Range/Units 09:06 Sodium 141 (136-145) mEq/L Potassium 3.8 (3.5-4.5) mEq/L Chloride 107 (98-109) mEq/L Carbon Dioxide 26 (19-29) mEq/L BUN 32 H (7-20) mg/dL Creatinine 0.96 (0.57-1.11) mg/dL Glucose 117 H (70-99) mg/dL Calcium 8.4 L (8.6-10.8) mg/dL Total Bilirubin 1.3 H (0.2-1.2) mg/dL AST 24 (5-34) Units/L ALT 9 (0-55) Units/L Alkaline Phosphatase 54 (38-126) Units/L Albumin 2.8 L (3.5-5.0) g/dL - Attending Attestation I examined this patient and my medical decision-making was reviewed with the Resident Physician. I agree with the documented findings, disposition and treatment plan as described except to the extent set forth below. The patient is seen and evaluated with the rest of the morning rounds. She continues to have sanguinous drainage from the Curtis-Mattson tubes. Her hemoglobin came up somewhat with blood transfusion however her hemoglobin is not at target recommended by cardiology. Because of this, I would like to keep her extra day and given additional blood transfusion. We will assess her for stability tomorrow morning. If stable she will be able to be discharged. Gray Rock MD FACS
[2017-05-22] MEDS: Simethicone 80 MG TAB.CHEW PO PRN (21:32)
[2017-05-23 06:04] LABS: BUN/Creatinine Ratio 35 (6-26); Blood Urea Nitrogen 28 mg/dL (7-20); Calcium 8.4 mg/dL (8.6-10.8); Carbon Dioxide 27 mEq/L (19-29); Chloride 105 mEq/L (98-109); Glucose 122 mg/dL (70-99); Osmolality,Calculated 297 (280-300); Potassium 3.9 mEq/L (3.5-4.5); Sodium 140 mEq/L (136-145); eGFR For African Americans > 60 (> 60); eGFR For Non-African Americans > 60 (> 60)
[2017-05-23 06:05] LABS: Basophils % 0.5 %; Eosinophils # 0.2 K/mcL (0.0-0.6); Eosinophils % 3.1 %; Hematocrit 28.8 % (35.3-44.9); Hemoglobin 9.4 g/dL (11.5-15.4); Immature Granulocytes % 0.5 % (0-4); Lymphocytes # 1.3 K/mcL (0.6-4.6); Lymphocytes % 22.2 %; Mean Corpuscular HGB Conc 32.6 g/dL (31.6-35.5); Mean Corpuscular Hemoglobin 29.5 pg (28.0-33.3); Mean Corpuscular Volume 90.3 fL (83.0-100.0); Mean Platelet Volume 9.9 fL (9.4-12.4); Monocytes # 0.5 K/mcL (0.0-1.3); Monocytes % 8.4 %; Neutrophils # 3.8 K/mcL (1.6-8.9); Platelet Count 162 K/mcL (140-400); Red Blood Count 3.19 M/mcL (3.82-4.97); Red Cell Distribution Width 16.3 % (11.5-14.5); Segmented Neutrophils % 65.3 %
[2017-05-23] MEDS: *HR* OxyCODONE/APAP 5/325 TABLET PO PRN ×2 (06:24→22:43)
[2017-05-23] MEDS: *HR* Heparin 5,000 UNIT/ML VIAL SQ SCH (06:25)
[2017-05-23] MEDS: Furosemide 40 MG TABLET PO SCH ×2 (08:39→17:28)
[2017-05-23] MEDS: Aspirin Enteric Coated 81 MG Tablet PO SCH (08:39)
[2017-05-23] MEDS: *HR* HYDROmorphone (PF) 1 MG/ML SYRINGE IVP PRN ×3 (08:39→17:28)
[2017-05-23] MEDS: Isosorbide MONOnitrate (24 HR) 30 MG TAB.ER.24H PO SCH (08:39)
[2017-05-23] MEDS: Insulin LISPRO 300 UNITS/3 ML VIAL SQ SCH ×4 (08:40→22:12)
--- NOTE | 2017-05-23 10:07 | General Surgery Progress Note ---
<Luiz Cassidy - Last Filed: 05/23/17 10:04> Date of Encounter: 05/23/17 Time of Encounter: 06:45 - Assessment and Plan (1) Breast cancer in female Current Visit: Yes Status: Chronic - Postop day #5 of left modified mastectomy - Wound healing well without evidence of infection. No erythema, purulent drainage, fevers, chills - Completed by postop anemia in the setting of acute blood loss - JESSICA drains in place draining serosanguineous fluid, draining 345 mL, increased from previous 235 ml. - Further management as below Qualifiers: Breast location: unspecified site of breast Estrogen receptor status: unspecified Laterality: left Qualified Code(s): C50.912 - Malignant neoplasm of unspecified site of left female breast (2) Acute blood loss as cause of postoperative anemia Current Visit: Yes Status: Acute - H/H of 9.4/28.8 this a.m, improved from 8.6 yesterday morning after getting 2 units PRBCs yesterday - Per cardiology, who recommends hemoglobin above 10.0 in the setting of CAD - Was anticoagulated after surgery. - Total of 4 units given since admission. - Will discontinue heparin given increased output in JESSICA drain and persistently low Hgb. Continue to use SCDs. (3) Atrial fibrillation with rapid ventricular response Current Visit: Yes Status: Resolved - History of paroxysmal atrial fibrillation with rapid ventricular response - Currently in normal sinus rhythm with a rate of 66 - Cardiology consulted, suspect A. fib RVR etiology of missed carvedilol doses in the setting of hypotension - Cardiology recommends holding valsartan and titrating beta sherrill as tolerated. Appreciate recommendations - Pt improved after continuing BB. No recent Hypotension. Will continue to monitor. Subjective Patient reports: no new complaints, feels better, pain is less, tolerating a regular diet Narrative: Pt is post op day #5 after modified left mastectomy for breast cancer. She reports improvement of symptoms and is having minimal pain at this time. JESSICA drain output increased from 235 mL to 345 mL yesterday of serosanguinous fluid. H/H improved after transfusion of 2 units yesterday. No new complaints. Objective Vital Signs - Last 8 Hours Temp Pulse Resp BP Pulse Ox 05/23/17 07:00 98.1 F 66 16 122/45 97 05/23/17 03:18 99.0 F 89 18 183/67 98 Intake and Output 05/22/17 05/23/17 05/23/17 23:59 07:59 15:59 Intake Total 940 / 940 0 / 0 Output Total 1035 / 1035 370 / 370 300 / 300 Balance -95 / -95 -370 / -370 -300 / -300 Intake: Oral 240 / 240 0 / 0 Blood Product 700 / 700 Rbcs Leuko Poor As-1 Unit 350 / 350 [id number] Rbcs Leuko Poor As-1 Unit 350 / 350 [id number] Output: Urine 900 / 900 300 / 300 300 / 300 Wound Drainage 135 / 135 70 / 70 Left Breast 100 / 100 50 / 50 Left Distal Breast 35 / 35 20 / 20 Other: Meal Breakfast Percent of Meal Consumed 100% # Voids 1 Blood Glucose* 158 122 - General physical appearance well developed, well nourished, no distress, obese - Respiratory normal expansion, normal respiratory effort, clear to auscultation - Cardiovascular Cardiovascular exam: Present: RRR, no murmurs/rubs/gallops - Abdomen Abdomen: Present: bowel sounds present, soft, non tender - Incision Incision: Present: clean and dry, intact, approximated - Labs 05/23/17 05:43 05/23/17 05:43 Diabetes panel 05/23/17 Range/Units 05:43 Sodium 140 (136-145) mEq/L Potassium 3.9 (3.5-4.5) mEq/L Chloride 105 (98-109) mEq/L Carbon Dioxide 27 (19-29) mEq/L BUN 28 H (7-20) mg/dL Creatinine 0.79 (0.57-1.11) mg/dL Glucose 122 H (70-99) mg/dL Calcium 8.4 L (8.6-10.8) mg/dL Calcium panel 05/23/17 Range/Units 05:43 Calcium 8.4 L (8.6-10.8) mg/dL Pituitary panel 05/23/17 Range/Units 05:43 Sodium 140 (136-145) mEq/L Potassium 3.9 (3.5-4.5) mEq/L Chloride 105 (98-109) mEq/L Carbon Dioxide 27 (19-29) mEq/L BUN 28 H (7-20) mg/dL Creatinine 0.79 (0.57-1.11) mg/dL Glucose 122 H (70-99) mg/dL Calcium 8.4 L (8.6-10.8) mg/dL Adrenal panel 05/23/17 Range/Units 05:43 Sodium 140 (136-145) mEq/L Potassium 3.9 (3.5-4.5) mEq/L Chloride 105 (98-109) mEq/L Carbon Dioxide 27 (19-29) mEq/L BUN 28 H (7-20) mg/dL Creatinine 0.79 (0.57-1.11) mg/dL Glucose 122 H (70-99) mg/dL Calcium 8.4 L (8.6-10.8) mg/dL - VTE Documentation of Mechanical Device: Intermittent pneumatic compression device Consult Discharge Plan - Plan Additional Instructions: #1 may shower 05/20/17, no tub bath for 2 weeks (pin drains up using a lanyard or equivalent) #2 wash incisions with soap and water and pat dry daily #3 no lifting, pushing, pulling more than 15 pounds for the next 2 weeks #4 no driving until off narcotics for 24 hours and able to safely react in the car #5 may climb stairs Wound care- cleanse incision and around drains with soap and water and pat dry, apply split 4X4 gauze to drains X 2, apply ABD pad X 2 to left chest incision, wrap with rohit bandage and secure daily and prn if soiled. Referrals: Gray Rock MD [Partnered Physician] - 06/02/17 1:00 pm Shantal Teague CNP [Advanced Practice Nurse] - 05/25/17 9:30 am (surgery follow-up) Prescriptions: OxyCODONE/APAP 5/325 [Percocet 5/325 MG] 1 each PO Q4HR PRN #30 tablet PRN Reason: Pain Docusate [Colace] 100 mg PO BID #30 capsule <Gray Rock - Last Filed: 05/25/17 07:25> Date of Encounter: 05/23/17 - Assessment and Plan (1) Acute blood loss anemia Current Visit: Yes Status: Acute (2) Acute blood loss as cause of postoperative anemia Current Visit: Yes Status: Acute (3) Breast cancer in female Current Visit: Yes Status: Chronic Qualifiers: Breast location: unspecified site of breast Estrogen receptor status: unspecified Laterality: left Qualified Code(s): C50.912 - Malignant neoplasm of unspecified site of left female breast (4) Atrial fibrillation with rapid ventricular response Current Visit: Yes Status: Resolved Objective Vital Signs - Last 8 Hours Temp Pulse Resp BP Pulse Ox 05/25/17 04:39 97.6 F 62 16 116/68 97 05/25/17 00:12 97.9 F 62 18 112/65 97 Intake and Output 05/24/17 05/24/17 05/25/17 15:59 23:59 07:59 Intake Total 1360 / 1360 880 / 880 400 / 400 Output Total 120 / 120 75 / 75 770 / 770 Balance 1240 / 1240 805 / 805 -370 / -370 Intake: IV Fluids 1000 / 1000 400 / 400 400 / 400 0.9 % Sodium Chloride 1,000 ML 1000 / 1000 400 / 400 400 / 400 @ 50 mls/hr IVC .Q20H [facility] Rx#: [id number] Oral 360 / 360 480 / 480 Output: Urine 700 / 700 Wound Drainage 120 / 120 75 / 75 70 / 70 Left Breast 20 / 20 50 / 50 50 / 50 Left Distal Breast 100 / 100 25 / 25 20 / 20 Other: Meal Lunch Dinner Percent of Meal Consumed 100% 100% Stool Size Large Moderate Stool Consistency formed soft Stool Characteristics Normal for Patient Stool Color Brown Pineda # Voids 1 # Urine Diapers 1 # Bowel Movements 1 Weight 108.1 kg Blood Glucose* 156 117 Patient Weight 05/25/17 23:59 Weight 108.1 kg - Labs 05/25/17 04:40 05/25/17 04:40 Diabetes panel 05/25/17 Range/Units 04:40 Sodium 142 (136-145) mEq/L Potassium 4.0 (3.5-4.5) mEq/L Chloride 106 (98-109) mEq/L Carbon Dioxide 28 (19-29) mEq/L BUN 21 H (7-20) mg/dL Creatinine 0.74 (0.57-1.11) mg/dL Glucose 115 H (70-99) mg/dL Calcium 8.2 L (8.6-10.8) mg/dL Calcium panel 05/25/17 Range/Units 04:40 Calcium 8.2 L (8.6-10.8) mg/dL Pituitary panel 05/25/17 Range/Units 04:40 Sodium 142 (136-145) mEq/L Potassium 4.0 (3.5-4.5) mEq/L Chloride 106 (98-109) mEq/L Carbon Dioxide 28 (19-29) mEq/L BUN 21 H (7-20) mg/dL Creatinine 0.74 (0.57-1.11) mg/dL Glucose 115 H (70-99) mg/dL Calcium 8.2 L (8.6-10.8) mg/dL Adrenal panel 05/25/17 Range/Units 04:40 Sodium 142 (136-145) mEq/L Potassium 4.0 (3.5-4.5) mEq/L Chloride 106 (98-109) mEq/L Carbon Dioxide 28 (19-29) mEq/L BUN 21 H (7-20) mg/dL Creatinine 0.74 (0.57-1.11) mg/dL Glucose 115 H (70-99) mg/dL Calcium 8.2 L (8.6-10.8) mg/dL - Attending Attestation I examined this patient and my medical decision-making was reviewed with the Resident Physician. I agree with the documented findings, disposition and treatment plan as described except to the extent set forth below. The patient is seen and evaluated on morning rounds with the rest. She continues to demonstrate signs of bleeding secondary to anticoagulation. We will stop her heparin today and put her back on E PCD's. We will watch her hemoglobin and hematocrit very closely and transfuse as necessary. Gray Rock MD FACS
[2017-05-23] MEDS: (Linagliptin [Tradjenta] 5 MG) PO SCH (11:21)
[2017-05-23] MEDS: Miconazole w/zinc oxide&karaya 92 APPL/92 GM TUBE TP SCH ×3 (11:58→22:14)
[2017-05-23] MEDS: Nystatin POWDER 30 GM BOTTLE TP SCH ×3 (11:58→22:13)
[2017-05-23] MEDS: 0.9 % Sodium Chloride 1,000 ML IVC SCH (17:34)
--- NOTE | 2017-05-23 22:35 | Electrocardiograph Report ---
[address] [place], [place] [address] Test Date: 2017-05-20 Pat Name: Malorie Hinson Department: 115 Room: 3A53 Gender: F [employer]ist: : 1940 Requested By: Gray Rock Order Number: [id number] Reading MD: Shantal Tsai Measurements Intervals [place] Rate: 85 P: 85 [place]: 176 QRS: 6 QRSD: 113 T: 137 QT: 387 QTc: 429 Interpretive Statements SINUS RHYTHM WITH OCCASIONAL ECTOPIC PREMATURE COMPLEXES INFERIOR MYOCARDIAL INFARCTION, PROBABLY OLD Electronically Signed On 05-23-2017 22:33:53 EST by Shantal Tsai
[2017-05-24 04:08] LABS: Basophils % 0.4 %; Eosinophils # 0.2 K/mcL (0.0-0.6); Eosinophils % 3.1 %; Hematocrit 29.1 % (35.3-44.9); Hemoglobin 9.3 g/dL (11.5-15.4); Immature Granulocytes % 0.7 % (0-4); Lymphocytes # 1.5 K/mcL (0.6-4.6); Lymphocytes % 27.8 %; Mean Corpuscular Hemoglobin 29.2 pg (28.0-33.3); Mean Corpuscular Volume 91.2 fL (83.0-100.0); Mean Platelet Volume 9.9 fL (9.4-12.4); Monocytes # 0.5 K/mcL (0.0-1.3); Monocytes % 9.4 %; Neutrophils # 3.2 K/mcL (1.6-8.9); Platelet Count 159 K/mcL (140-400); Red Blood Count 3.19 M/mcL (3.82-4.97); Red Cell Distribution Width 16.3 % (11.5-14.5); Segmented Neutrophils % 58.6 %
[2017-05-24 04:21] LABS: BUN/Creatinine Ratio 31 (6-26); Blood Urea Nitrogen 23 mg/dL (7-20); Calcium 8.4 mg/dL (8.6-10.8); Carbon Dioxide 27 mEq/L (19-29); Chloride 106 mEq/L (98-109); Glucose 125 mg/dL (70-99); Osmolality,Calculated 299 (280-300); Potassium 3.9 mEq/L (3.5-4.5); Sodium 142 mEq/L (136-145); eGFR For African Americans > 60 (> 60); eGFR For Non-African Americans > 60 (> 60)
--- NOTE | 2017-05-24 09:01 | General Surgery Progress Note ---
<Luiz Cassidy - Last Filed: 05/24/17 08:56> Date of Encounter: 05/24/17 Time of Encounter: 06:40 - Assessment and Plan (1) Breast cancer in female Current Visit: Yes Status: Chronic - Postop day #6 of left modified mastectomy - Wound healing well without evidence of infection. No erythema, purulent drainage, fevers, chills - Completed by postop anemia in the setting of acute blood loss - JESSICA drains in place draining serous fluid, draining 220 mL,decreased from previous 345 ml. - Working on placement to Rehab center. - Further management as below Qualifiers: Breast location: unspecified site of breast Estrogen receptor status: unspecified Laterality: left Qualified Code(s): C50.912 - Malignant neoplasm of unspecified site of left female breast (2) Acute blood loss as cause of postoperative anemia Current Visit: Yes Status: Acute - H/H of 9.3/29.1 this a.m, stable from 9.4/28.8 - Per cardiology, who recommends hemoglobin above 10.0 in the setting of CAD - Was anticoagulated after surgery. Stopped Heparin yesterday, given SCDs - Total of 4 units given since admission. - Stable and improved. Will continue to monitor while securing placement. (3) Atrial fibrillation with rapid ventricular response Current Visit: Yes Status: Resolved - History of paroxysmal atrial fibrillation with rapid ventricular response - Currently in normal sinus rhythm with a rate of 62 - Cardiology consulted, suspect A. fib RVR etiology of missed carvedilol doses in the setting of hypotension - Cardiology recommends holding valsartan and titrating beta sherrill as tolerated. Appreciate recommendations - Pt improved after continuing BB. No recent Hypotension. Will continue to monitor. (4) Constipation Current Visit: Yes Status: Chronic - Pt requesting laxative. - Takes milk of magnesia at home. - Continue home dose of 10 mL Qday Qualifiers: Constipation type: unspecified constipation type Qualified Code(s): K59.00 - Constipation, unspecified Subjective Patient reports: no new complaints, feels better, tolerating a regular diet, voiding w/o difficulty, afebrile Narrative: Ms. Hinson is post op day #6 from modified left mastectomy for breast malignancy. She continues to do well and has no complaints. Decreased output from her JESSICA drains from yesterday and H/H stable from previous. Objective Vital Signs - Last 8 Hours Temp Pulse Resp BP Pulse Ox 05/24/17 07:43 98.4 F 62 14 135/68 97 05/24/17 05:02 98.1 F 67 14 137/84 97 Intake and Output 05/23/17 05/24/17 05/24/17 23:59 07:59 15:59 Intake Total 240 / 240 360 / 360 Output Total 70 / 70 Balance 170 / 170 360 / 360 Intake: Oral 240 / 240 360 / 360 Output: Urine 0 / 0 Wound Drainage 70 / 70 Left Breast 50 / 50 Left Distal Breast 20 / 20 Other: Meal Breakfast Percent of Meal Consumed 0% 100% Weight 107.8 kg Blood Glucose* 188 125 Patient Weight 05/24/17 23:59 Weight 107.8 kg - General physical appearance well developed, well nourished, no distress, obese - Respiratory normal expansion, normal respiratory effort, clear to auscultation - Cardiovascular Cardiovascular exam: Present: RRR, no murmurs/rubs/gallops - Incision Incision: Present: clean and dry, intact, approximated. Absent: draining - Labs 05/24/17 03:48 05/24/17 03:48 Diabetes panel 05/24/17 Range/Units 03:48 Sodium 142 (136-145) mEq/L Potassium 3.9 (3.5-4.5) mEq/L Chloride 106 (98-109) mEq/L Carbon Dioxide 27 (19-29) mEq/L BUN 23 H (7-20) mg/dL Creatinine 0.74 (0.57-1.11) mg/dL Glucose 125 H (70-99) mg/dL Calcium 8.4 L (8.6-10.8) mg/dL Calcium panel 05/24/17 Range/Units 03:48 Calcium 8.4 L (8.6-10.8) mg/dL Pituitary panel 05/24/17 Range/Units 03:48 Sodium 142 (136-145) mEq/L Potassium 3.9 (3.5-4.5) mEq/L Chloride 106 (98-109) mEq/L Carbon Dioxide 27 (19-29) mEq/L BUN 23 H (7-20) mg/dL Creatinine 0.74 (0.57-1.11) mg/dL Glucose 125 H (70-99) mg/dL Calcium 8.4 L (8.6-10.8) mg/dL Adrenal panel 05/24/17 Range/Units 03:48 Sodium 142 (136-145) mEq/L Potassium 3.9 (3.5-4.5) mEq/L Chloride 106 (98-109) mEq/L Carbon Dioxide 27 (19-29) mEq/L BUN 23 H (7-20) mg/dL Creatinine 0.74 (0.57-1.11) mg/dL Glucose 125 H (70-99) mg/dL Calcium 8.4 L (8.6-10.8) mg/dL - VTE Documentation of Mechanical Device: Intermittent pneumatic compression device Consult Discharge Plan - Plan Additional Instructions: #1 may shower 05/20/17, no tub bath for 2 weeks (pin drains up using a lanyard or equivalent) #2 wash incisions with soap and water and pat dry daily #3 no lifting, pushing, pulling more than 15 pounds for the next 2 weeks #4 no driving until off narcotics for 24 hours and able to safely react in the car #5 may climb stairs Wound care- cleanse incision and around drains with soap and water and pat dry, apply split 4X4 gauze to drains X 2, apply ABD pad X 2 to left chest incision, wrap with rohit bandage and secure daily and prn if soiled. Referrals: Gray Rock MD [Partnered Physician] - 06/02/17 1:00 pm Shantal Teague CNP [Advanced Practice Nurse] - 05/25/17 9:30 am (surgery follow-up) Prescriptions: OxyCODONE/APAP 5/325 [Percocet 5/325 MG] 1 each PO Q4HR PRN #30 tablet PRN Reason: Pain Docusate [Colace] 100 mg PO BID #30 capsule <Gray Rock - Last Filed: 05/25/17 07:31> Date of Encounter: 05/24/17 - Assessment and Plan (1) Acute blood loss anemia Current Visit: Yes Status: Acute (2) Acute blood loss as cause of postoperative anemia Current Visit: Yes Status: Acute (3) Breast cancer in female Current Visit: Yes Status: Chronic Qualifiers: Breast location: unspecified site of breast Estrogen receptor status: unspecified Laterality: left Qualified Code(s): C50.912 - Malignant neoplasm of unspecified site of left female breast (4) Atrial fibrillation with rapid ventricular response Current Visit: Yes Status: Resolved Objective Vital Signs - Last 8 Hours Temp Pulse Resp BP Pulse Ox 05/25/17 04:39 97.6 F 62 16 116/68 97 05/25/17 00:12 97.9 F 62 18 112/65 97 Intake and Output 05/24/17 05/24/17 05/25/17 15:59 23:59 07:59 Intake Total 1360 / 1360 880 / 880 400 / 400 Output Total 120 / 120 75 / 75 770 / 770 Balance 1240 / 1240 805 / 805 -370 / -370 Intake: IV Fluids 1000 / 1000 400 / 400 400 / 400 0.9 % Sodium Chloride 1,000 ML 1000 / 1000 400 / 400 400 / 400 @ 50 mls/hr IVC .Q20H [facility] Rx#: [id number] Oral 360 / 360 480 / 480 Output: Urine 700 / 700 Wound Drainage 120 / 120 75 / 75 70 / 70 Left Breast 20 / 20 50 / 50 50 / 50 Left Distal Breast 100 / 100 25 / 25 20 / 20 Other: Meal Lunch Dinner Percent of Meal Consumed 100% 100% Stool Size Large Moderate Stool Consistency formed soft Stool Characteristics Normal for Patient Stool Color Brown [place] # Voids 1 # Urine Diapers 1 # Bowel Movements 1 Weight 108.1 kg Blood Glucose* 156 117 Patient Weight 05/25/17 23:59 Weight 108.1 kg - Labs 05/25/17 04:40 05/25/17 04:40 Diabetes panel 05/25/17 Range/Units 04:40 Sodium 142 (136-145) mEq/L Potassium 4.0 (3.5-4.5) mEq/L Chloride 106 (98-109) mEq/L Carbon Dioxide 28 (19-29) mEq/L BUN 21 H (7-20) mg/dL Creatinine 0.74 (0.57-1.11) mg/dL Glucose 115 H (70-99) mg/dL Calcium 8.2 L (8.6-10.8) mg/dL Calcium panel 05/25/17 Range/Units 04:40 Calcium 8.2 L (8.6-10.8) mg/dL Pituitary panel 05/25/17 Range/Units 04:40 Sodium 142 (136-145) mEq/L Potassium 4.0 (3.5-4.5) mEq/L Chloride 106 (98-109) mEq/L Carbon Dioxide 28 (19-29) mEq/L BUN 21 H (7-20) mg/dL Creatinine 0.74 (0.57-1.11) mg/dL Glucose 115 H (70-99) mg/dL Calcium 8.2 L (8.6-10.8) mg/dL Adrenal panel 05/25/17 Range/Units 04:40 Sodium 142 (136-145) mEq/L Potassium 4.0 (3.5-4.5) mEq/L Chloride 106 (98-109) mEq/L Carbon Dioxide 28 (19-29) mEq/L BUN 21 H (7-20) mg/dL Creatinine 0.74 (0.57-1.11) mg/dL Glucose 115 H (70-99) mg/dL Calcium 8.2 L (8.6-10.8) mg/dL - Attending Attestation I examined this patient and my medical decision-making was reviewed with the Resident Physician. I agree with the documented findings, disposition and treatment plan as described except to the extent set forth below. The patient is seen and evaluated on morning rounds with the resident. She appears to have slowed amount of bleeding. No transfusion was required. We should be able to start working on rehabilitation placement. Gray Rock MD FACS
[2017-05-24] MEDS: Aspirin Enteric Coated 81 MG Tablet PO SCH (09:22)
[2017-05-24] MEDS: Isosorbide MONOnitrate (24 HR) 30 MG TAB.ER.24H PO SCH (09:22)
[2017-05-24] MEDS: MOM Conc 10 ML UD.LIQ PO SCH (09:22)
[2017-05-24] MEDS: Furosemide 40 MG TABLET PO SCH ×2 (09:22→18:14)
[2017-05-24] MEDS: Nystatin POWDER 30 GM BOTTLE TP SCH ×3 (09:23→21:28)
[2017-05-24] MEDS: Insulin LISPRO 300 UNITS/3 ML VIAL SQ SCH ×4 (09:24→21:28)
[2017-05-24] MEDS: Miconazole w/zinc oxide&karaya 92 APPL/92 GM TUBE TP SCH ×3 (09:24→21:28)
[2017-05-24] MEDS: (Linagliptin [Tradjenta] 5 MG) PO SCH (09:24)
--- NOTE | 2017-05-24 12:19 | Electrocardiograph Report ---
[address] [place], [place] [address] Test Date: 2017-05-19 Pat Name: JOSE M PIERSON Department: 115 Room: 53 Gender: Unknown Obedience Trainer: : 1940 Requested By: Gray Rock Order Number: [id number] Reading MD: Marc Stahl MD Measurements Intervals [place] Rate: 106 P: [place]: 0 QRS: 1 QRSD: 113 T: 137 QT: 332 QTc: 394 Interpretive Statements SINUS TACHYCARDIA BASELINE ARTIFACT Electronically Signed On 05-24-2017 12:17:50 EST by Marc Stahl MD
[2017-05-24] MEDS: *HR* OxyCODONE/APAP 5/325 TABLET PO PRN ×2 (16:01→23:47)
[2017-05-24] MEDS: 0.9 % Sodium Chloride 1,000 ML IVC SCH (16:02)
[2017-05-25] MEDS: 0.9 % Sodium Chloride 1,000 ML IVC SCH (04:43)
[2017-05-25 05:06] LABS: BUN/Creatinine Ratio 28 (6-26); Blood Urea Nitrogen 21 mg/dL (7-20); Calcium 8.2 mg/dL (8.6-10.8); Carbon Dioxide 28 mEq/L (19-29); Chloride 106 mEq/L (98-109); Glucose 115 mg/dL (70-99); Osmolality,Calculated 298 (280-300); Sodium 142 mEq/L (136-145); eGFR For African Americans > 60 (> 60); eGFR For Non-African Americans > 60 (> 60)
[2017-05-25 05:15] LABS: Basophils % 0.3 %; Eosinophils # 0.2 K/mcL (0.0-0.6); Eosinophils % 3.6 %; Hematocrit 29.6 % (35.3-44.9); Hemoglobin 9.1 g/dL (11.5-15.4); Immature Granulocytes % 0.5 % (0-4); Lymphocytes # 1.3 K/mcL (0.6-4.6); Lymphocytes % 21.9 %; Mean Corpuscular HGB Conc 30.7 g/dL (31.6-35.5); Mean Corpuscular Hemoglobin 28.6 pg (28.0-33.3); Mean Corpuscular Volume 93.1 fL (83.0-100.0); Mean Platelet Volume 9.9 fL (9.4-12.4); Monocytes # 0.6 K/mcL (0.0-1.3); Monocytes % 10.5 %; Neutrophils # 3.7 K/mcL (1.6-8.9); Platelet Count 177 K/mcL (140-400); Red Blood Count 3.18 M/mcL (3.82-4.97); Red Cell Distribution Width 16.1 % (11.5-14.5); Segmented Neutrophils % 63.2 %
[2017-05-25] MEDS: *HR* OxyCODONE/APAP 5/325 TABLET PO PRN ×2 (08:12→16:04)
[2017-05-25] MEDS: Miconazole w/zinc oxide&karaya 92 APPL/92 GM TUBE TP SCH ×2 (08:14→13:57)
[2017-05-25] MEDS: Aspirin Enteric Coated 81 MG Tablet PO SCH (08:14)
[2017-05-25] MEDS: Insulin LISPRO 300 UNITS/3 ML VIAL SQ SCH ×2 (08:14→11:31)
[2017-05-25] MEDS: Furosemide 40 MG TABLET PO SCH (08:14)
[2017-05-25] MEDS: (Linagliptin [Tradjenta] 5 MG) PO SCH (08:15)
[2017-05-25] MEDS: MOM Conc 10 ML UD.LIQ PO SCH (08:15)
[2017-05-25] MEDS: Nystatin POWDER 30 GM BOTTLE TP SCH ×2 (08:15→13:57)
[2017-05-25] MEDS: Isosorbide MONOnitrate (24 HR) 30 MG TAB.ER.24H PO SCH (08:15)
[2017-05-25 11:11] VITALS: BP 96/41
--- NOTE | 2017-05-25 14:37 | Discharge Summary ---
<Shantal Teague - Last Filed: 05/25/17 14:51> Date of Encounter: 05/25/17 Time of Encounter: 14:35 - Discharge Diagnosis (1) Breast cancer in female Priority: Primary Status: Chronic Qualifiers: Breast location: unspecified site of breast Estrogen receptor status: unspecified Laterality: left Qualified Code(s): C50.912 - Malignant neoplasm of unspecified site of left female breast (2) Morbid obesity with BMI of 40.0-44.9, adult Priority: Secondary Status: Chronic (3) Ischemic cardiomyopathy Priority: Secondary Status: Chronic (4) DM (diabetes mellitus), type 2 Priority: Secondary Status: Chronic Qualifiers: Diabetes mellitus complication status: with kidney complications Diabetes mellitus complication detail: with chronic kidney disease Diabetes mellitus snf insulin use: without medical terminologist use Chronic kidney disease stage: stage 3 (moderate) Qualified Code(s): E11.22 - Type 2 diabetes mellitus with diabetic chronic kidney disease; N18.3 - Chronic kidney disease, stage 3 ( moderate); N18.3 - Chronic kidney disease, stage 3 (moderate) (5) CKD (chronic kidney disease), stage III Priority: Secondary Status: Acute (6) CAD (coronary artery disease) Priority: Secondary Status: Chronic Qualifiers: Coronary Disease-Associated Artery/Lesion type: [place] artery [place] vs. transplanted heart: [place] heart Associated angina: without angina Qualified Code(s): I25.10 - Atherosclerotic heart disease of [place] coronary artery without angina pectoris (7) Acute blood loss as cause of postoperative anemia Priority: Secondary Status: Acute (8) Afib Priority: Secondary Status: Acute Qualifiers: Atrial fibrillation type: paroxysmal Qualified Code(s): I48.0 - Paroxysmal atrial fibrillation - Discharge Medications Prescriptions: OxyCODONE/APAP 5/325 [Percocet 5/325 MG] 1 each PO Q4HR PRN #30 tablet PRN Reason: Pain Docusate [Colace] 100 mg PO BID #30 capsule Home Medications: Fesoterodine Fumarate [Toviaz] 4 mg PO DAILY 05/10/15 [History] Glimepiride [Amaryl] 1 mg PO PRN PRN 05/10/15 [History] Linagliptin [Tradjenta] 5 mg PO DAILY 05/10/15 [History] TraMADol [Ultram] 50 mg PO Q6HR PRN 05/10/15 [History] Valsartan [Diovan] 80 mg PO DAILY 05/10/15 [History] Aspirin Enteric Coated [Aspirin EC] 81 mg PO DAILY #30 tablet. 05/12/15 [Rx] Prasugrel [Effient] 10 mg PO DAILY #30 tablet 05/12/15 [Rx] Furosemide [Lasix] 40 mg PO BID 08/13/15 [History] Isosorbide MONOnitrate (24 HR) [Imdur] 30 mg PO DAILY 08/13/15 [History] Carvedilol [Coreg] 12.5 mg PO BIDWM 10/17/16 [History] Cholecalciferol (D-3) [Vitamin D] 5,000 unit PO DAILY 10/17/16 [History] Atorvastatin [Lipitor] 40 mg PO HS 03/10/17 [History] MOM Conc [MILK OF MAGNESIA conc] 10 ml PO DAILY PRN 04/13/17 [History] Nitroglycerin [Nitrostat] 1 tab SL DAILY PRN 04/13/17 [History] Simethicone [Gas-X] 80 mg PO DAILY PRN 04/13/17 [History] Docusate [Colace] 100 mg PO BID #30 capsule 05/19/17 [Rx] OxyCODONE/APAP 5/325 [Percocet 5/325 MG] 1 each PO Q4HR PRN #30 tablet 05/19/17 [Rx] Nystatin POWDER [Nystop] 1 appl TP TID bottle 05/25/17 [Rx] Allergies/Adverse Reactions: 3 Allergy/AdvReac Type Severity Reaction Status Date / Time codeine Allergy Unknown heart races Verified 05/26/17 07:22 lisinopril Allergy Cough Verified 05/26/17 07:22 General Surgery Exam Initial Vital Signs Temp Pulse Resp BP Pulse Ox 98.2 F 76 18 121/54 96 05/18/17 13:44 05/18/17 13:44 05/18/17 13:44 05/18/17 13:44 05/18/17 13:44 - General physical appearance well developed, well nourished, no distress, obese - Eyes normal ocular movement - ENT normal mucosa, atraumatic, normocephalic - Neck trachea midline - Respiratory normal respiratory effort, clear to auscultation - Cardiovascular Cardiovascular exam: Present: irregular rhythm (Rate controlled HR- 60) - Abdomen Abdomen general surgery: Present: bowel sounds present, soft, non tender - Incision Incision: Present: clean and dry, intact, serosanguinous (JESSICA X 2 to left chest with serousang. drainage) - Integumentary Integumentary general surgery: Present: warm and dry - Neurologic Present: CN 2-12 grossly intact - Musculoskeletal Present: other (moderate deconditioning) - Psychiatric Psychiatric general surgery: Present: A&Ox3 Date of admission: 05/18/17 17:54 Primary care physician: PCP NONE Consults: 05/19/17 13:[address] Contractor [CONS] Routine Reason for SW Consult: assess for home needs- home health 05/22/17 15:34 Consult to Invasive Line Access Team [CONS] Routine Reason for Consult: limited vascular access Line Type: EPIV Discharging clinician: Gray Rock (Steff Teague) Anticipated date of discharge: 05/25/17 - Patient Status Disposition: Transfer Hospital Swing Bed Condition: Good Functional capacity at discharge: uses cane/walker Overall status at discharge: patient is not back to baseline - Discharge Instructions Follow Up With: Gray Rock MD [Partnered Physician] - 06/02/17 1:00 pm Shantal Teague CNP [Advanced Practice Nurse] - () Additional Instructions: #1 may shower 05/20/17, no tub bath for 2 weeks (pin drains up using a lanyard or equivalent) #2 wash incisions with soap and water and pat dry daily #3 no lifting, pushing, pulling more than 15 pounds for the next 2 weeks #4 no driving until off narcotics for 24 hours and able to safely react in the car #5 may climb stairs Wound care- cleanse incision and around drains with soap and water and pat dry, apply split 4X4 gauze to drains X 2, apply ABD pad X 2 to left chest incision, wrap with rohit bandage and secure daily and prn if soiled. - Diet and Activity Activity: increase activity as tolerated Diet: diabetic diet - Hospital Course Hospital course: Ms. Hinson is a 76 year old female who has been seen and evaluated by Dr. Rock for a primary breast cancer. She is status post a left modified radical mastectomy. She did experience postoperative bleeding. She was maintained in the hospital for monitoring of blood loss and pain control. She did require a total of 4 units of packed red blood cell transfusion. She also experience atrial fibrillation during her hospitalization and cardiology was consulted for evaluation. They felt that her A. fib with RVR was related to a missed dose of medication due to hypotension in the setting of acute blood loss anemia. The patient's rate normalized with restart of her cardiac medication. She declines anticoagulation and states that she will continue her aspirin therapy. The patient's blood counts are stable at this time. We will begin discharge planning to rehab when the patient's blood counts are stable, her pain is well- controlled with oral pain medication, vital signs are stable and she is afebrile , she is tolerating a diet without nausea or vomiting. She did experience hyperglycemia during her hospital stay and was placed on a medium scale of sliding scale insulin. The patient was given drain education during her hospitalization. Social service was consulted for discharge planning. She will be discharged to rehab with her drains in place and will follow up in the office in the next 7-10 days for evaluation. - Time Spent with Patient Total time spent providing and/or coordinating discharge services: Greater than 30 minutes Labs on day of discharge: Labs from last 24 hours 05/25/17 05/25/17 05/25/17 11:06 07:30 04:40 WBC RBC Hgb Hct MCV MCH MCHC RDW Plt Count MPV Immature Gran % Seg Neutrophils % Lymphocytes % Monocytes % Eosinophils % Basophils % Neutrophils # Lymphocytes # Monocytes # Eosinophils # Basophils # Sodium 142 Potassium 4.0 Chloride 106 Carbon Dioxide 28 BUN 21 H Creatinine 0.74 Est GFR ( Amer) > 60 Est GFR (Non-Af Amer) > 60 BUN/Creatinine Ratio 28 H Glucose 115 H POC Glucose 175 H 119 H Calculated Osmolality 298 Calcium 8.2 L 05/25/17 05/24/17 04:40 16:55 WBC 5.8 RBC 3.18 L Hgb 9.1 L Hct 29.6 L MCV 93.1 MCH 28.6 MCHC 30.7 L RDW 16.1 H Plt Count 177 MPV 9.9 Immature Gran % 0.5 Seg Neutrophils % 63.2 Lymphocytes % 21.9 Monocytes % 10.5 Eosinophils % 3.6 Basophils % 0.3 Neutrophils # 3.7 Lymphocytes # 1.3 Monocytes # 0.6 Eosinophils # 0.2 Basophils # 0.0 Sodium Potassium Chloride Carbon Dioxide BUN Creatinine Est GFR ( Amer) Est GFR (Non-Af Amer) BUN/Creatinine Ratio Glucose POC Glucose 121 H Calculated Osmolality Calcium - Attending Attestation For this encounter, I have reviewed the INTERLOCKING INSTALLER or PA documentation, treatment plan, and medical decision making; and I have had face to face time with this patient. <Gray Rock - Last Filed: 05/26/17 16:41> Date of Encounter: 05/25/17 - Discharge Diagnosis (1) Acute blood loss anemia Status: Acute (2) Acute blood loss as cause of postoperative anemia Status: Deleted (3) Breast cancer in female Status: Chronic Qualifiers: Breast location: unspecified site of breast Estrogen receptor status: unspecified Laterality: left Qualified Code(s): C50.912 - Malignant neoplasm of unspecified site of left female breast (4) Atrial fibrillation with rapid ventricular response Status: Deleted General Surgery Exam Initial Vital Signs Temp Pulse Resp BP Pulse Ox 98.2 F 76 18 121/54 96 05/18/17 13:44 05/18/17 13:44 05/18/17 13:44 05/18/17 13:44 05/18/17 13:44 Date of admission: 05/18/17 17:54 Primary care physician: PCP NONE Consults: 05/19/17 13:[address] Contractor [CONS] Routine Reason for SW Consult: assess for home needs- home health 05/22/17 15:34 Consult to Invasive Line Access Team [CONS] Routine Reason for Consult: limited vascular access Line Type: EPIV 05/25/17 14:48 Consult to Occupational Therapy [CONS] Stat Comment: Evaluate, develop and implement POC Reason for Consult: D/C to rehab; need recommendations Consult to Physical Therapy [CONS] Stat Comment: Evaluate, develop and implement POC Reason for Consult: D/C to rehab; need recommendations - Hospital Course Hospital course: Ms. Hinson is a 76 year old female - Time Spent with Patient Total time spent providing and/or coordinating discharge services: - Attending Attestation The patient is seen and evaluated. She is stable and ready for discharge. Gray Rock MD FACS
--- NOTE | 2017-05-25 14:55 | Physician Discharge Referral ---
ExtendedCare Referral Info Transfer To: Inpatient rehab facility Provider in Charge: Dr. Gray Rock Provider in Charge after Transfer: Other (Dr. Gray Rock) Institutional Level of Care: Skilled - Diagnosis (1) Breast cancer in female Priority: Primary Status: Chronic (2) Morbid obesity with BMI of 40.0-44.9, adult Priority: Secondary Status: Chronic (3) Ischemic cardiomyopathy Priority: Secondary Status: Chronic (4) DM (diabetes mellitus), type 2 Priority: Secondary Status: Chronic (5) CKD (chronic kidney disease), stage III Priority: Secondary Status: Acute (6) CAD (coronary artery disease) Priority: Secondary Status: Chronic (7) Acute blood loss as cause of postoperative anemia Priority: Secondary Status: Acute (8) Afib Priority: Secondary Status: Acute Expected Duration of Placement: less than 30 days Prognosis: Good Aware of Diagnosis: Patient, Family Aware of Prognosis: Patient, Family - Transfer Medications Prescriptions: OxyCODONE/APAP 5/325 [Percocet 5/325 MG] 1 each PO Q4HR PRN #30 tablet PRN Reason: Pain Docusate [Colace] 100 mg PO BID #30 capsule Home Medications: Fesoterodine Fumarate [Toviaz] 4 mg PO DAILY 05/10/15 [History] Glimepiride [Amaryl] 1 mg PO PRN PRN 05/10/15 [History] Linagliptin [Tradjenta] 5 mg PO DAILY 05/10/15 [History] TraMADol [Ultram] 50 mg PO Q6HR PRN 05/10/15 [History] Valsartan [Diovan] 80 mg PO DAILY 05/10/15 [History] Aspirin Enteric Coated [Aspirin EC] 81 mg PO DAILY #30 tablet. 05/12/15 [Rx] Prasugrel [Effient] 10 mg PO DAILY #30 tablet 05/12/15 [Rx] Furosemide [Lasix] 40 mg PO BID 08/13/15 [History] Isosorbide MONOnitrate (24 HR) [Imdur] 30 mg PO DAILY 08/13/15 [History] Carvedilol [Coreg] 12.5 mg PO BIDWM 10/17/16 [History] Cholecalciferol (D-3) [Vitamin D] 5,000 unit PO DAILY 10/17/16 [History] Atorvastatin [Lipitor] 40 mg PO HS 03/10/17 [History] MOM Conc [MILK OF MAGNESIA conc] 10 ml PO DAILY PRN 04/13/17 [History] Nitroglycerin [Nitrostat] 1 tab SL DAILY PRN 04/13/17 [History] Simethicone [Gas-X] 80 mg PO DAILY PRN 04/13/17 [History] Docusate [Colace] 100 mg PO BID #30 capsule 05/19/17 [Rx] OxyCODONE/APAP 5/325 [Percocet 5/325 MG] 1 each PO Q4HR PRN #30 tablet 05/19/17 [Rx] Nystatin POWDER [Nystop] 1 appl TP TID bottle 05/25/17 [Rx] Allergies/Adverse Reactions: 3 Allergy/AdvReac Type Severity Reaction Status Date / Time codeine Allergy Unknown heart races Verified 04/27/17 14:25 lisinopril Allergy Cough Verified 04/27/17 14:25 - Respiratory Orders None - Ancillary Orders May use pressure relief devices daily prn, May go on YANNICK w/family/respon alliance party w /meds at nurse discretion PRN, May consult with Dentist, Calculation Clerk, Administrator PRN - Advance Directives Code Status: Full Code - Mobility Orders Chair, Ambulate - Rehabiliation Orders Rehab Potential: Good Rehab Orders: ROM Exercises, Evaluation for Physical Therapy, Evaluation for Occupational Therapy - Treatments Skin tear care topically daily PRN per policy List/Other: #1 may shower 05/20/17, no tub bath for 2 weeks (pin drains up using a lanyard or equivalent) #2 wash incisions with soap and water and pat dry daily #3 no lifting, pushing, pulling more than 15 pounds for the next 2 weeks #4 no driving until off narcotics for 24 hours and able to safely react in the car #5 may climb stairs Wound care- cleanse incision and around drains with soap and water and pat dry, apply split 4X4 gauze to drains X 2, apply ABD pad X 2 to left chest incision, wrap with rohit bandage and secure daily and prn if soiled. - Diet Orders No Concentrated Sweets CERTIFICATION: I certify that the transfer of the above named patient to an Extended Care Facility is necessary for the continuing treatment of the diagnosis listed. The above information is true and accurate reflection of patient's current condition. Confidential - Redisclosure prohibited without a patient's written consent.
== END 2017-05-25 16:25 | disposition home health service (06) | DRG 580 ==
LOC: SAMDAY 12:33 → 3ANU 17:54
PROVIDERS: ADMIT Surgery; ATTEND Surgery

== ENCOUNTER 2019-08-06 15:45 | Inpatient (IN) ==
[2019-08-06] MEDS ORDERED: Naloxone 0.4 MG/ML INJ IVP PRN ×2 (18:07→21:34)
[2019-08-06] MEDS ORDERED: Ringers Solution, Lactated 1,000 ML IVC SCH (18:15)
[2019-08-06] MEDS ORDERED: Ondansetron 4 MG/2 ML VIAL IVP PRN (21:34)
[2019-08-06] MEDS ORDERED: D5% in Water 1,000 ML IVC PRN (21:48)
[2019-08-06] MEDS ORDERED: Dextrose Gel 15 GM/37.5 ML TUBE PO PRN ×2 (21:48)
[2019-08-06] MEDS ORDERED: *HR* Dextrose 50 % in Water (Syg) 50 ML SYRINGE IVP PRN (21:48)
[2019-08-06] MEDS: Ringers Solution, Lactated 1,000 ML IVC SCH (21:52)
[2019-08-06 23:22] LABS: Adenovirus Not Detected (Not Detect); Bordetella Pertussis Not Detected (Not Detect); Chlamydophila pneumoniae Not Detected (Not Detect); Coronavirus 229E Not Detected (Not Detect); Coronavirus HKU1 Not Detected (Not Detect); Coronavirus NL63 Not Detected (Not Detect); Coronavirus OC43 Not Detected (Not Detect); Human Metapneumovirus Not Detected (Not Detect); Human Rhinovirus/Enterovirus Not Detected (Not Detect); Influenza A Subtype 2009 H1 Not Detected (Not Detect); Influenza B Not Detected (Not Detect); Mycoplasma pneumoniae Not Detected (Not Detect); Parainfluenza Virus 1 Not Detected (Not Detect); Parainfluenza Virus 2 Not Detected (Not Detect); Parainfluenza Virus 3 Not Detected (Not Detect); Parainfluenza Virus 4 Not Detected (Not Detect); Respiratory Syncytial Virus Not Detected (Not Detect)
[2019-08-07 04:52] LABS: Basophils % 0.1 %; Eosinophils % 0.3 %; Hematocrit 33.3 % (35.3-44.9); Hemoglobin 10.5 g/dL (11.5-15.4); Immature Granulocytes % 0.5 % (0-4); Lymphocytes # 0.9 K/mcL (0.6-4.6); Lymphocytes % 8.3 %; Mean Corpuscular HGB Conc 31.5 g/dL (31.6-35.5); Mean Corpuscular Volume 98.2 fL (83.0-100.0); Mean Platelet Volume 10.1 fL (9.4-12.4); Monocytes # 0.6 K/mcL (0.0-1.3); Monocytes % 5.5 %; Neutrophils # 9.2 K/mcL (1.6-8.9); Platelet Count 172 K/mcL (140-400); Red Blood Count 3.39 M/mcL (3.82-4.97); Red Cell Distribution Width 14.1 % (11.5-14.5); Segmented Neutrophils % 85.3 %; White Blood Count 10.7 K/mcL (4.3-11.1)
[2019-08-07] MEDS: *HR* Heparin 5,000 UNIT/ML VIAL SQ SCH ×3 (05:16→22:35)
[2019-08-07 05:19] LABS: INR 1.7; Prothrombin Time 19.3 Seconds (9.4-12.1)
[2019-08-07 05:23] LABS: Alanine Aminotransferase 10 Units/L (7-52); Albumin 2.4 g/dL (3.5-5.7); Alkaline Phosphatase 33 Units/L (34-104); Aspartate Amino Transferase 15 Units/L (13-39); BUN/Creatinine Ratio 31 (6-26); Bilirubin,Total 0.5 mg/dL (0.3-1.0); Blood Urea Nitrogen 23 mg/dL (8-23); Carbon Dioxide 19 mEq/L (23-29); Chloride 114 mEq/L (98-107); Cholesterol 60 mg/dL (< 200); Globulin 2.5 g/dL (2.4-3.5); Glucose 90 mg/dL (70-105); HDL Cholesterol 20 mg/dL (40-59); LDL Cholesterol,Calculated 33 mg/dL (0-99); Magnesium 1.7 mg/dL (1.6-2.6); Osmolality,Calculated 291 (280-300); Phosphorous 2.2 mg/dL (2.7-4.5); Potassium 3.9 mEq/L (3.5-5.1); Sodium 139 mEq/L (136-145); Total Protein 4.9 g/dL (6.4-8.9); Triglycerides 36 mg/dL (< 150); eGFR For African Americans > 60 (> 60); eGFR For Non-African Americans > 60 (> 60)
[2019-08-07] MEDS: Insulin LISPRO 300 UNITS/3 ML VIAL SQ SCH ×4 (08:26→21:55)
[2019-08-07] MEDS ORDERED: Gadolinium Contrast Agent (WT Based) IV PRN (09:23)
[2019-08-07] MEDS: Ringers Solution, Lactated 1,000 ML IVC SCH (10:33)
[2019-08-07] MEDS: carvediloL 6.25 MG TABLET PO SCH (17:41)
[2019-08-07] MEDS: Nystatin POWDER 30 GM BOTTLE TP SCH (22:35)
[2019-08-08] MEDS: *HR* Heparin 5,000 UNIT/ML VIAL SQ SCH (05:42)
[2019-08-08] MEDS: Ringers Solution, Lactated 1,000 ML IVC SCH (05:43)
[2019-08-08 06:23] LABS: Basophils % 0.2 %; Eosinophils # 0.2 K/mcL (0.0-0.6); Eosinophils % 2.7 %; Hematocrit 33.9 % (35.3-44.9); Hemoglobin 10.5 g/dL (11.5-15.4); Immature Granulocytes % 0.5 % (0-4); Lymphocytes # 0.9 K/mcL (0.6-4.6); Lymphocytes % 16.3 %; Mean Corpuscular Hemoglobin 31.3 pg (28.0-33.3); Mean Corpuscular Volume 100.9 fL (83.0-100.0); Mean Platelet Volume 9.6 fL (9.4-12.4); Monocytes # 0.4 K/mcL (0.0-1.3); Monocytes % 6.6 %; Neutrophils # 4.1 K/mcL (1.6-8.9); Platelet Count 151 K/mcL (140-400); Red Blood Count 3.36 M/mcL (3.82-4.97); Red Cell Distribution Width 14.3 % (11.5-14.5); Segmented Neutrophils % 73.7 %; White Blood Count 5.6 K/mcL (4.3-11.1)
[2019-08-08] MEDS: Insulin LISPRO 300 UNITS/3 ML VIAL SQ SCH ×4 (08:55→21:29)
[2019-08-08] MEDS: Isosorbide MONOnitrate (24 HR) 60 MG TAB.ER.24H PO SCH (08:58)
[2019-08-08] MEDS: Aspirin Enteric Coated 81 MG Tablet PO SCH (09:00)
[2019-08-08] MEDS: carvediloL 6.25 MG TABLET PO SCH ×2 (09:00→16:50)
[2019-08-08] MEDS: Nystatin POWDER 30 GM BOTTLE TP SCH ×2 (09:01→21:31)
[2019-08-08 09:29] LABS: BUN/Creatinine Ratio 23 (6-26); Blood Urea Nitrogen 19 mg/dL (8-23); Calcium 8.2 mg/dL (8.6-10.3); Carbon Dioxide 18 mEq/L (23-29); Chloride 113 mEq/L (98-107); Glucose 74 mg/dL (70-105); Osmolality,Calculated 285 (280-300); Potassium 4.1 mEq/L (3.5-5.1); Sodium 137 mEq/L (136-145); eGFR For African Americans > 60 (> 60); eGFR For Non-African Americans > 60 (> 60)
[2019-08-08] MEDS: Acetaminophen 325 MG TABLET PO PRN ×2 (12:28→21:30)
[2019-08-08] MEDS ORDERED: Ringers Solution, Lactated 500 ML IVC ONE ×2 (16:46→16:47)
[2019-08-08] MEDS ORDERED: Ringers Solution, Lactated 500 ML IVC SCH (17:00)
[2019-08-08] MEDS: Apixaban 5 MG TABLET PO SCH (17:30)
[2019-08-09 04:39] LABS: Basophils % 0.5 %; Eosinophils # 0.2 K/mcL (0.0-0.6); Eosinophils % 4.1 %; Hematocrit 30.1 % (35.3-44.9); Hemoglobin 9.2 g/dL (11.5-15.4); Immature Granulocytes % 0.5 % (0-4); Lymphocytes # 0.9 K/mcL (0.6-4.6); Lymphocytes % 20.3 %; Mean Corpuscular HGB Conc 30.6 g/dL (31.6-35.5); Mean Corpuscular Hemoglobin 30.6 pg (28.0-33.3); Mean Platelet Volume 9.6 fL (9.4-12.4); Monocytes # 0.3 K/mcL (0.0-1.3); Monocytes % 7.4 %; Platelet Count 159 K/mcL (140-400); Red Blood Count 3.01 M/mcL (3.82-4.97); Segmented Neutrophils % 67.2 %; White Blood Count 4.4 K/mcL (4.3-11.1)
[2019-08-09 04:58] LABS: BUN/Creatinine Ratio 20 (6-26); Blood Urea Nitrogen 19 mg/dL (8-23); Carbon Dioxide 22 mEq/L (23-29); Chloride 111 mEq/L (98-107); Glucose 91 mg/dL (70-105); Osmolality,Calculated 286 (280-300); Potassium 4.1 mEq/L (3.5-5.1); Sodium 137 mEq/L (136-145); eGFR For African Americans > 60 (> 60); eGFR For Non-African Americans 58 (> 60)
[2019-08-09] MEDS: Insulin LISPRO 300 UNITS/3 ML VIAL SQ SCH ×4 (09:25→20:59)
[2019-08-09] MEDS: Aspirin Enteric Coated 81 MG Tablet PO SCH (09:33)
[2019-08-09] MEDS: Isosorbide MONOnitrate (24 HR) 60 MG TAB.ER.24H PO SCH (09:33)
[2019-08-09] MEDS: carvediloL 6.25 MG TABLET PO SCH ×2 (09:34→17:23)
[2019-08-09] MEDS: Nystatin POWDER 30 GM BOTTLE TP SCH ×2 (09:35→20:21)
[2019-08-09] MEDS: Acetaminophen 325 MG TABLET PO PRN ×2 (09:36→20:20)
[2019-08-09] MEDS: Sennosides 8.6 MG TABLET PO SCH ×2 (17:23→20:20)
[2019-08-09] MEDS: Apixaban 5 MG TABLET PO SCH (17:23)
[2019-08-10] MEDS: Insulin LISPRO 300 UNITS/3 ML VIAL SQ SCH (07:52)
[2019-08-10] MEDS: Isosorbide MONOnitrate (24 HR) 60 MG TAB.ER.24H PO SCH (08:00)
[2019-08-10] MEDS: Aspirin Enteric Coated 81 MG Tablet PO SCH (08:00)
[2019-08-10] MEDS: carvediloL 6.25 MG TABLET PO SCH (08:00)
[2019-08-10] MEDS: Acetaminophen 325 MG TABLET PO PRN (08:00)
[2019-08-10] MEDS: Sennosides 8.6 MG TABLET PO SCH (08:00)
[2019-08-10] MEDS: Nystatin POWDER 30 GM BOTTLE TP SCH (08:01)
[2019-08-10 15:24] VITALS: BP 124/52
== END 2019-08-10 09:36 | disposition other institution (70) | DRG 439 ==
LOC: 3ANU → SUATTDRO 17:28
PROVIDERS: ADMIT Pharmacist; ATTEND Internal Medicine

== ENCOUNTER 2019-08-23 16:59 | Inpatient (IN) ==
[2019-08-23 18:47] LABS: Calcium 8.9 mg/dL (8.6-10.3); Potassium 4.4 mEq/L (3.5-5.1)
[2019-08-23 20:14] LABS: Troponin I 0.17 ng/mL (< 0.04)
[2019-08-23 20:43] LABS: Hematocrit 32.4 % (35.3-44.9); Hemoglobin 9.8 g/dL (11.5-15.4); Mean Corpuscular HGB Conc 30.2 g/dL (31.6-35.5); Mean Corpuscular Hemoglobin 30.4 pg (28.0-33.3); Mean Corpuscular Volume 100.6 fL (83.0-100.0); Mean Platelet Volume 9.5 fL (9.4-12.4); Platelet Count 318 K/mcL (140-400); Red Blood Count 3.22 M/mcL (3.82-4.97); Red Cell Distribution Width 13.4 % (11.5-14.5); White Blood Count 5.2 K/mcL (4.3-11.1)
[2019-08-23] MEDS ORDERED: Naloxone 0.4 MG/ML INJ IVP PRN (23:55)
[2019-08-23] MEDS ORDERED: *HR* Dextrose 50 % in Water (Syg) 50 ML SYRINGE IVP PRN (23:57)
[2019-08-23] MEDS ORDERED: D5% in Water 1,000 ML IVC PRN (23:57)
[2019-08-23] MEDS ORDERED: Dextrose Gel 15 GM/37.5 ML TUBE PO PRN ×2 (23:57)
[2019-08-24] MEDS: Insulin LISPRO 300 UNITS/3 ML VIAL SQ SCH ×4 (00:07→17:32)
[2019-08-24] MEDS: Apixaban 5 MG TABLET PO SCH ×3 (00:54→20:42)
[2019-08-24] MEDS: Nystatin POWDER 30 GM BOTTLE TP SCH ×4 (00:55→20:43)
[2019-08-24 05:34] LABS: Hemoglobin 9.2 g/dL (11.5-15.4); Mean Corpuscular HGB Conc 30.7 g/dL (31.6-35.5); Mean Platelet Volume 9.2 fL (9.4-12.4); Platelet Count 285 K/mcL (140-400); Red Blood Count 2.97 M/mcL (3.82-4.97); Red Cell Distribution Width 13.5 % (11.5-14.5); White Blood Count 5.2 K/mcL (4.3-11.1)
[2019-08-24 05:50] LABS: Calcium 8.4 mg/dL (8.6-10.3); Magnesium 2.2 mg/dL (1.6-2.6); Phosphorous 3.4 mg/dL (2.7-4.5); Potassium 4.1 mEq/L (3.5-5.1)
[2019-08-24] MEDS ORDERED: Perflutren Lipid Microsphere 1.3 ML in 0.9 % Sodium Chloride 8.7 ML IVP ONE (07:04)
[2019-08-24] MEDS ORDERED: *HR* Midazolam HCl 5 MG/5 ML VIAL IVP ONE (11:10)
[2019-08-24] MEDS ORDERED: *HR* Heparin 10,000 UNIT/10 ML VIAL ONE (11:10)
[2019-08-24] MEDS ORDERED: ISOVUE-370 200 ML INFUS..BTL ONE (11:10)
[2019-08-24] MEDS ORDERED: Nitroglycerin 1,000 MCG/10 ML VIAL IV ONE ×2 (11:10→12:12)
[2019-08-24] MEDS ORDERED: 0.9 % Sodium Chloride 2,000 ML ONE (11:10)
[2019-08-24] MEDS ORDERED: Heparin 1,000 UNITS/500 mL 500 ML ONE ×2 (11:10→12:01)
[2019-08-24] MEDS ORDERED: Isovue-300 150 ML INFUS..BTL ONE (12:10)
[2019-08-24] MEDS ORDERED: *HR* FentaNYL (PF) 100 MCG/2 ML VIAL ONE (12:10)
[2019-08-24] MEDS ORDERED: *HR* Ticagrelor 90 MG TABLET ONE (12:17)
[2019-08-24] MEDS: Acetaminophen 325 MG TABLET PO PRN ×2 (16:16→22:11)
[2019-08-24] MEDS: *HR* Ticagrelor 90 MG TABLET PO SCH (20:42)
[2019-08-25] MEDS: Insulin LISPRO 300 UNITS/3 ML VIAL SQ SCH ×3 (01:40→12:05)
[2019-08-25] MEDS ORDERED: Aspirin Enteric Coated 81 MG Tablet PO SCH (09:00)
[2019-08-25] MEDS ORDERED: Metoprolol XL (24 HR) Succ 50 MG TAB.ER.24H PO SCH (09:00)
[2019-08-25] MEDS ORDERED: Isosorbide MONOnitrate (24 HR) 60 MG TAB.ER.24H PO SCH (09:00)
[2019-08-25] MEDS ORDERED: Cholecalciferol (D-3) 1,000 UNIT (25MCG) TABLET PO SCH (09:00)
[2019-08-25 09:56] LABS: Hemoglobin 9.7 g/dL (11.5-15.4)
[2019-08-25] MEDS: Apixaban 5 MG TABLET PO SCH (10:11)
[2019-08-25] MEDS: *HR* Ticagrelor 90 MG TABLET PO SCH (10:11)
[2019-08-25 10:12] LABS: BUN/Creatinine Ratio 22 (6-26); Blood Urea Nitrogen 24 mg/dL (8-23); Troponin I 0.11 ng/mL (< 0.04); eGFR For African Americans 58 (> 60); eGFR For Non-African Americans 48 (> 60)
[2019-08-25] MEDS: Nystatin POWDER 30 GM BOTTLE TP SCH (10:12)
[2019-08-25] MEDS: Acetaminophen 325 MG TABLET PO PRN (10:16)
[2019-08-25 15:29] VITALS: BP 114/62
== END 2019-08-25 15:47 | disposition home or self-care (01) | DRG 247 ==
LOC: EMEROOARM 16:59 → 2ANU 16:59 → SUATTDRO 21:37 → 2ANU 22:08
PROVIDERS: ADMIT Internal Medicine; ATTEND Internal Medicine

== ENCOUNTER 2020-05-30 13:34 | Inpatient (IN) ==
[2020-05-30] MEDS ORDERED: Naloxone 0.4 MG/ML INJ IVP PRN (17:14)
[2020-05-30] MEDS ORDERED: Ondansetron 4 MG/2 ML VIAL IVP PRN (17:14)
[2020-05-30] MEDS ORDERED: Dextrose Gel 15 GM/37.5 ML TUBE PO PRN ×2 (17:32)
[2020-05-30] MEDS ORDERED: *HR* Dextrose 50 % in Water (Vial) 50 ML VIAL IVP PRN (17:32)
[2020-05-30] MEDS ORDERED: D5% in Water 1,000 ML IVC PRN (17:32)
[2020-05-30 17:44] LABS: Basophils % 0.1 %; Eosinophils % 0.1 %; Hematocrit 44.1 % (35.3-44.9); Hemoglobin 13.1 g/dL (11.5-15.4); Immature Granulocytes % 0.7 % (0-4); Lymphocytes # 0.8 K/mcL (0.6-4.6); Lymphocytes % 4.6 %; Mean Corpuscular HGB Conc 29.7 g/dL (31.6-35.5); Mean Corpuscular Hemoglobin 28.5 pg (28.0-33.3); Mean Corpuscular Volume 96.1 fL (83.0-100.0); Neutrophils # 14.8 K/mcL (1.6-8.9); Platelet Count 185 K/mcL (140-400); Red Blood Count 4.59 M/mcL (3.82-4.97); Red Cell Distribution Width 14.6 % (11.5-14.5); Segmented Neutrophils % 88.5 %; White Blood Count 16.7 K/mcL (4.3-11.1)
[2020-05-30] MEDS: Piperacillin/Tazobactam 3.375 GM in 0.9 % Sodium Chloride Mini Bag 100 ML IVPB SCH (17:56)
[2020-05-30 18:14] LABS: Troponin I 0.32 ng/mL (< 0.04)
[2020-05-30] MEDS ORDERED: 0.9 % Sodium Chloride 1,000 ML IVC SCH (18:15)
[2020-05-30 18:24] LABS: Albumin 3.5 g/dL (3.5-5.7); Albumin/Globulin Ratio 1.1 (1.1-2.2); Bilirubin,Total 1.1 mg/dL (0.3-1.0); Calcium 9.3 mg/dL (8.6-10.3); Globulin 3.3 g/dL (2.4-3.5); Potassium 5.3 mEq/L (3.5-5.1); Total Protein 6.8 g/dL (6.4-8.9)
[2020-05-30] MEDS ORDERED: Sodium Bicarbonate 150 MEQ in Water for inj. (sterile) 1,000 ML IVC SCH (18:30)
[2020-05-30 18:34] LABS: C-Reactive Protein 7 mg/L (Less than 10); Ferritin 381 ng/mL (10-120); Lactate Dehydrogenase 2211 Units/L (140-271)
[2020-05-30 19:23] LABS: Adenovirus Not Detected (Not Detect); Bordetella Pertussis Not Detected (Not Detect); Chlamydophila pneumoniae Not Detected (Not Detect); Coronavirus 229E Not Detected (Not Detect); Coronavirus HKU1 Not Detected (Not Detect); Coronavirus NL63 Not Detected (Not Detect); Coronavirus OC43 Not Detected (Not Detect); Human Metapneumovirus Not Detected (Not Detect); Human Rhinovirus/Enterovirus DETECTED (Not Detect); Influenza A Subtype 2009 H1 Not Detected (Not Detect); Influenza B Not Detected (Not Detect); Mycoplasma pneumoniae Not Detected (Not Detect); Parainfluenza Virus 1 Not Detected (Not Detect); Parainfluenza Virus 2 Not Detected (Not Detect); Parainfluenza Virus 3 Not Detected (Not Detect); Parainfluenza Virus 4 Not Detected (Not Detect); Respiratory Syncytial Virus Not Detected (Not Detect); SARS-CoV-2 Not Detected (Not Detect)
[2020-05-30 19:27] LABS: Acetaminophen < 10 mcg/mL (10-20); Ethanol < 10 mg/dL (Less than 10); Salicylate < 2.5 mg/dL (15.0-30.0)
[2020-05-30 19:32] LABS: INR 3.4; Prothrombin Time 37.7 Seconds (9.4-12.1)
[2020-05-30] MEDS ORDERED: Aspirin 325 MG TABLET PO ONE (20:02)
[2020-05-30 20:07] LABS: Hepatitis B Surface Antigen Nonreactive (Nonreactive)
[2020-05-30] MEDS: *HR* Ticagrelor 90 MG TABLET PO SCH (20:19)
[2020-05-30 20:36] LABS: Hepatitis C Virus Antibody Nonreactive (Nonreactive)
[2020-05-30 20:37] LABS: Hepatitis B Core IgM Nonreactive (Nonreactive)
[2020-05-30 20:38] LABS: Hepatitis A Antibody IgM Nonreactive (Nonreactive)
[2020-05-31 00:48] LABS: INR 3.4; Prothrombin Time 38.5 Seconds (9.4-12.1)
[2020-05-31 01:03] LABS: Troponin I 0.39 ng/mL (< 0.04)
[2020-05-31 01:14] LABS: Albumin 3.3 g/dL (3.5-5.7); Albumin/Globulin Ratio 1.1 (1.1-2.2); Bilirubin,Direct 0.6 mg/dL (0.0-0.2); Bilirubin,Indirect 0.5 mg/dL (0.0-1.0); Bilirubin,Total 1.1 mg/dL (0.3-1.0); Calcium 8.9 mg/dL (8.6-10.3); Globulin 3.1 g/dL (2.4-3.5); Potassium 5.2 mEq/L (3.5-5.1); Total Protein 6.4 g/dL (6.4-8.9)
[2020-05-31] MEDS ORDERED: *HR* Heparin 5,000 UNIT/ML VIAL IVP PRN ×4 (01:26→10:56)
[2020-05-31] MEDS ORDERED: *HR* Heparin 5,000 UNIT/ML VIAL IVP ONE (01:26)
[2020-05-31] MEDS ORDERED: Heparin 25,000UNIT/250ML 1/2NS 25,000 UNIT/250 ML IV.SOLN IVC SCH (01:30)
[2020-05-31 02:06] LABS: Activated Partial Thrombo Time 28.4 Seconds (26.0-36.0)
[2020-05-31 05:07] LABS: Hematocrit 36.5 % (35.3-44.9); Hemoglobin 11.1 g/dL (11.5-15.4); Mean Corpuscular HGB Conc 30.4 g/dL (31.6-35.5); Mean Corpuscular Hemoglobin 28.5 pg (28.0-33.3); Mean Corpuscular Volume 93.8 fL (83.0-100.0); Mean Platelet Volume 11.6 fL (9.4-12.4); Platelet Count 131 K/mcL (140-400); Red Blood Count 3.89 M/mcL (3.82-4.97); Red Cell Distribution Width 14.6 % (11.5-14.5); White Blood Count 17.9 K/mcL (4.3-11.1)
[2020-05-31] MEDS: Piperacillin/Tazobactam 3.375 GM in 0.9 % Sodium Chloride Mini Bag 100 ML IVPB SCH ×2 (05:07→17:46)
[2020-05-31] MEDS: Pantoprazole 40 MG VIAL IVP SCH (07:37)
[2020-05-31] MEDS: Insulin LISPRO 300 UNITS/3 ML VIAL SQ SCH ×3 (07:37→16:40)
[2020-05-31] MEDS: *HR* Ticagrelor 90 MG TABLET PO SCH ×2 (07:37→21:47)
[2020-05-31] MEDS ORDERED: Perflutren Lipid Microsphere 1.3 ML in 0.9 % Sodium Chloride 8.7 ML IVP PRN ×2 (08:30→12:46)
[2020-05-31 11:43] LABS: ABG Base Excess -6 mEq/L (-2 to 3); ABG HCO3 18 mEq/L (21-27); ABG Oxygen Saturation 99 % (95-98); ABG PCO2 29 mmHg (35-45); ABG PO2 134 mmHg (85-104); ABG TCO2 18 mEq/L (20-26)
[2020-05-31] MEDS: Heparin 25,000UNIT/250ML 1/2NS 25,000 UNIT/250 ML IV.SOLN IVC SCH (12:35)
[2020-05-31] MEDS ORDERED: 0.9 % Sodium Chloride 500 ML IVC ONE (16:38)
[2020-05-31] MEDS ORDERED: 0.9 % Sodium Chloride 500 ML ONE (16:42)
[2020-05-31] MEDS: Albumin 25% 25gram/100mL 25 GM/100 ML IV.SOLN IVPB SCH (16:49)
[2020-05-31 17:13] LABS: ABG Base Excess -7 mEq/L (-2 to 3); ABG HCO3 17 mEq/L (21-27); ABG Oxygen Saturation 99 % (95-98); ABG PCO2 26 mmHg (35-45); ABG PH 7.42 pH Units (7.32-7.45); ABG PO2 131 mmHg (85-104); ABG TCO2 18 mEq/L (20-26)
[2020-05-31 18:09] LABS: Hematocrit 32.8 % (35.3-44.9); Hemoglobin 10.2 g/dL (11.5-15.4)
[2020-05-31] MEDS ORDERED: Furosemide 240 MG in 0.9 % Sodium Chloride 96 ML IVC SCH (18:30)
[2020-05-31 19:26] LABS: ABG Base Excess -5 mEq/L (-2 to 3); ABG HCO3 20 mEq/L (21-27); ABG Oxygen Saturation 99 % (95-98); ABG PCO2 32 mmHg (35-45); ABG PH 7.39 pH Units (7.32-7.45); ABG PO2 137 mmHg (85-104); ABG TCO2 21 mEq/L (20-26)
[2020-05-31 21:15] LABS: Basophils % 0.1 %; Hematocrit 31.8 % (35.3-44.9); Hemoglobin 9.5 g/dL (11.5-15.4); Immature Granulocytes % 0.7 % (0-4); Lymphocytes # 0.8 K/mcL (0.6-4.6); Lymphocytes % 6.1 %; Mean Corpuscular HGB Conc 29.9 g/dL (31.6-35.5); Mean Platelet Volume 11.5 fL (9.4-12.4); Monocytes # 0.4 K/mcL (0.0-1.3); Monocytes % 2.8 %; Neutrophils # 12.3 K/mcL (1.6-8.9); Nucleated Red Blood Cells 0.1 /100 WBC (0); Platelet Count 135 K/mcL (140-400); Red Blood Count 3.28 M/mcL (3.82-4.97); Red Cell Distribution Width 14.6 % (11.5-14.5); Segmented Neutrophils % 90.3 %; White Blood Count 13.6 K/mcL (4.3-11.1)
[2020-05-31 21:24] LABS: Activated Partial Thrombo Time 83.1 Seconds (26.0-36.0)
[2020-05-31 21:35] LABS: INR 4.6; Prothrombin Time 50.6 Seconds (9.4-12.1)
[2020-05-31 21:44] LABS: Albumin/Globulin Ratio 1.1 (1.1-2.2); Bilirubin,Direct 0.4 mg/dL (0.0-0.2); Bilirubin,Indirect 0.6 mg/dL (0.0-1.0); Calcium 7.7 mg/dL (8.6-10.3); Globulin 2.7 g/dL (2.4-3.5); Potassium 4.5 mEq/L (3.5-5.1); Total Protein 5.7 g/dL (6.4-8.9); Troponin I 0.23 ng/mL (< 0.04)
[2020-05-31] MEDS: Lactulose Oral Soln 20 GM/30 ML UDC PO SCH (21:47)
[2020-06-01] MEDS: Albumin 25% 25gram/100mL 25 GM/100 ML IV.SOLN IVPB SCH ×3 (00:04→19:43)
[2020-06-01 02:38] LABS: Eosinophils % 0.1 %; Hematocrit 28.9 % (35.3-44.9); Hemoglobin 8.8 g/dL (11.5-15.4); Immature Granulocytes % 0.8 % (0-4); Lymphocytes # 0.9 K/mcL (0.6-4.6); Lymphocytes % 6.6 %; Mean Corpuscular HGB Conc 30.4 g/dL (31.6-35.5); Mean Corpuscular Hemoglobin 28.7 pg (28.0-33.3); Mean Corpuscular Volume 94.1 fL (83.0-100.0); Mean Platelet Volume 11.3 fL (9.4-12.4); Monocytes # 0.6 K/mcL (0.0-1.3); Monocytes % 4.3 %; Neutrophils # 11.8 K/mcL (1.6-8.9); Platelet Count 132 K/mcL (140-400); Red Blood Count 3.07 M/mcL (3.82-4.97); Red Cell Distribution Width 14.6 % (11.5-14.5); Segmented Neutrophils % 88.2 %; White Blood Count 13.3 K/mcL (4.3-11.1)
[2020-06-01 02:56] LABS: Albumin 3.1 g/dL (3.5-5.7); Albumin/Globulin Ratio 1.5 (1.1-2.2); Globulin 2.1 g/dL (2.4-3.5); Magnesium 1.8 mg/dL (1.6-2.6); Phosphorous 3.5 mg/dL (2.7-4.5); Potassium 3.9 mEq/L (3.5-5.1); Total Protein 5.2 g/dL (6.4-8.9)
[2020-06-01 04:40] LABS: Potassium,Urine 45.1 mEq/L; Sodium, Urine 23.2 mEq/L
[2020-06-01 04:43] LABS: Bilirubin,Urine Negative (Negative); Blood,Urine Moderate (Negative); Clarity,Urine Clear (Clear); Color,Urine Light-Yellow (Yellow); Glucose,Urine (UA) Normal (Normal); Hyaline Casts,Urine Few per lpf (None Seen); Ketones,Urine Negative (Negative); Leukocyte Esterase,Urine Negative (Negative); Mucus,Urine Few per lpf (None-Few); Nitrite,Urine Negative (Negative); Protein,Urine Trace mg/dL (Neg-Trace); RBC,Urine 0-3 per hpf (0-3); Specific Gravity,Urine 1.018 (1.010-1.025); Squamous Epithelial Cell,Urine Few per hpf (None-Few); Urobilinogen,Urine Normal (Normal); WBC,Urine 0-3 per hpf (0-3)
[2020-06-01] MEDS: Piperacillin/Tazobactam 3.375 GM in 0.9 % Sodium Chloride Mini Bag 100 ML IVPB SCH ×2 (04:59→17:36)
[2020-06-01] MEDS: Insulin LISPRO 300 UNITS/3 ML VIAL SQ SCH ×3 (08:36→17:02)
[2020-06-01] MEDS: Aspirin Enteric Coated 81 MG Tablet PO SCH (08:46)
[2020-06-01] MEDS: Pantoprazole 40 MG VIAL IVP SCH (08:46)
[2020-06-01] MEDS: *HR* Ticagrelor 90 MG TABLET PO SCH ×2 (08:46→19:43)
[2020-06-01] MEDS: Lactulose Oral Soln 20 GM/30 ML UDC PO SCH ×2 (08:46→19:43)
[2020-06-01 10:34] LABS: INR 2.5; Prothrombin Time 28.4 Seconds (9.4-12.1)
[2020-06-01] MEDS ORDERED: Magnesium Oxide 400 MG TABLET PO ONE (11:43)
[2020-06-01] MEDS: Furosemide 40 MG/4 ML VIAL IVP SCH ×2 (12:37→19:43)
[2020-06-01] MEDS: Metoprolol XL (24 HR) Succ 25 MG TAB.ER.24H PO SCH (19:43)
[2020-06-01] MEDS: Melatonin 3 MG TABLET PO PRN (21:34)
[2020-06-02 01:01] LABS: INR 2.1; Prothrombin Time 23.9 Seconds (9.4-12.1)
[2020-06-02 01:10] LABS: Albumin 3.4 g/dL (3.5-5.7); Albumin/Globulin Ratio 1.8 (1.1-2.2); Bilirubin,Total 1.1 mg/dL (0.3-1.0); Calcium 8.2 mg/dL (8.6-10.3); Globulin 1.9 g/dL (2.4-3.5); Magnesium 1.5 mg/dL (1.6-2.6); Phosphorous 2.1 mg/dL (2.7-4.5); Potassium 3.2 mEq/L (3.5-5.1); Total Protein 5.3 g/dL (6.4-8.9)
[2020-06-02 01:19] LABS: Basophils % 0.1 %; Eosinophils # 0.1 K/mcL (0.0-0.6); Hematocrit 25.1 % (35.3-44.9); Hemoglobin 7.7 g/dL (11.5-15.4); Immature Granulocytes % 0.5 % (0-4); Lymphocytes # 0.7 K/mcL (0.6-4.6); Mean Corpuscular HGB Conc 30.7 g/dL (31.6-35.5); Mean Corpuscular Hemoglobin 29.4 pg (28.0-33.3); Mean Corpuscular Volume 95.8 fL (83.0-100.0); Mean Platelet Volume 11.4 fL (9.4-12.4); Monocytes # 0.3 K/mcL (0.0-1.3); Monocytes % 4.6 %; Neutrophils # 6.2 K/mcL (1.6-8.9); Platelet Count 123 K/mcL (140-400); Red Blood Count 2.62 M/mcL (3.82-4.97); Red Cell Distribution Width 14.7 % (11.5-14.5); Segmented Neutrophils % 84.8 %; White Blood Count 7.3 K/mcL (4.3-11.1)
[2020-06-02] MEDS ORDERED: Amiodarone Premix 150 MG/100 ML BAG IVPB ONE (03:51)
[2020-06-02 04:05] LABS: ABG Base Excess 2 mEq/L (-2 to 3); ABG HCO3 25 mEq/L (21-27); ABG Oxygen Saturation 100 % (95-98); ABG PCO2 32 mmHg (35-45); ABG PO2 221 mmHg (85-104); ABG TCO2 26 mEq/L (20-26)
[2020-06-02] MEDS: Piperacillin/Tazobactam 3.375 GM in 0.9 % Sodium Chloride Mini Bag 100 ML IVPB SCH (05:04)
[2020-06-02] MEDS: Insulin LISPRO 300 UNITS/3 ML VIAL SQ SCH ×3 (07:17→16:15)
[2020-06-02] MEDS: Aspirin Enteric Coated 81 MG Tablet PO SCH (08:15)
[2020-06-02] MEDS: Furosemide 40 MG/4 ML VIAL IVP SCH ×2 (08:15→20:47)
[2020-06-02] MEDS: Lactulose Oral Soln 20 GM/30 ML UDC PO SCH ×2 (08:15→20:49)
[2020-06-02] MEDS: Metoprolol XL (24 HR) Succ 25 MG TAB.ER.24H PO SCH ×2 (08:15→20:47)
[2020-06-02] MEDS: *HR* Ticagrelor 90 MG TABLET PO SCH ×2 (08:15→20:47)
[2020-06-02] MEDS: Pantoprazole 40 MG VIAL IVP SCH (08:16)
[2020-06-02 15:04] LABS: % Iron Saturation 4 % (15-50); Iron 11 mcg/dL (50-170); Transferrin 202 mg/dL (203-362)
[2020-06-02 15:16] LABS: Folate 11.1 ng/mL (3.0-16.0); Vitamin B12 > 1500 pg/mL (250-1100)
[2020-06-02] MEDS ORDERED: Iron Sucrose Complex 400 MG in 0.9 % Sodium Chloride 250 ML IVPB ONE (16:19)
[2020-06-02] MEDS: Melatonin 3 MG TABLET PO PRN (20:48)
[2020-06-03 03:11] LABS: Basophils % 0.1 %; Eosinophils # 0.1 K/mcL (0.0-0.6); Eosinophils % 1.9 %; Hematocrit 26.4 % (35.3-44.9); Immature Granulocytes % 0.7 % (0-4); Lymphocytes # 0.7 K/mcL (0.6-4.6); Lymphocytes % 9.4 %; Mean Corpuscular HGB Conc 30.3 g/dL (31.6-35.5); Mean Corpuscular Hemoglobin 28.9 pg (28.0-33.3); Mean Corpuscular Volume 95.3 fL (83.0-100.0); Mean Platelet Volume 11.3 fL (9.4-12.4); Monocytes # 0.5 K/mcL (0.0-1.3); Monocytes % 6.8 %; Neutrophils # 5.8 K/mcL (1.6-8.9); Platelet Count 120 K/mcL (140-400); Red Blood Count 2.77 M/mcL (3.82-4.97); Red Cell Distribution Width 14.6 % (11.5-14.5); Segmented Neutrophils % 81.1 %; White Blood Count 7.2 K/mcL (4.3-11.1)
[2020-06-03 03:19] LABS: INR 1.8; Prothrombin Time 20.4 Seconds (9.4-12.1)
[2020-06-03 03:33] LABS: Alanine Aminotransferase 235 Units/L (7-52); Albumin 3.4 g/dL (3.5-5.7); Albumin/Globulin Ratio 1.5 (1.1-2.2); Alkaline Phosphatase 34 Units/L (34-104); Aspartate Amino Transferase 163 Units/L (13-39); BUN/Creatinine Ratio 51 (6-26); Bilirubin,Total 1.3 mg/dL (0.3-1.0); Blood Urea Nitrogen 46 mg/dL (8-23); Calcium 8.3 mg/dL (8.6-10.3); Carbon Dioxide 31 mEq/L (23-29); Chloride 100 mEq/L (98-107); Globulin 2.2 g/dL (2.4-3.5); Glucose 101 mg/dL (70-105); Osmolality,Calculated 302 (280-300); Potassium 3.1 mEq/L (3.5-5.1); Sodium 140 mEq/L (136-145); Total Protein 5.6 g/dL (6.4-8.9); eGFR For African Americans > 60 (> 60); eGFR For Non-African Americans 59 (> 60)
[2020-06-03] MEDS: Insulin LISPRO 300 UNITS/3 ML VIAL SQ SCH ×3 (08:47→17:38)
[2020-06-03] MEDS: Pantoprazole 40 MG VIAL IVP SCH (08:48)
[2020-06-03] MEDS: *HR* Ticagrelor 90 MG TABLET PO SCH ×2 (08:48→20:29)
[2020-06-03] MEDS: Aspirin Enteric Coated 81 MG Tablet PO SCH (08:48)
[2020-06-03] MEDS: Lactulose Oral Soln 20 GM/30 ML UDC PO SCH ×2 (08:52→20:27)
[2020-06-03] MEDS: Furosemide 40 MG/4 ML VIAL IVP SCH (08:55)
[2020-06-03] MEDS: Metoprolol XL (24 HR) Succ 25 MG TAB.ER.24H PO SCH (08:56)
[2020-06-03 11:33] LABS: Magnesium 1.5 mg/dL (1.6-2.6)
[2020-06-03] MEDS: Bumetanide 1 MG TABLET PO SCH (20:27)
[2020-06-03] MEDS: Metoprolol XL (24 HR) Succ 50 MG TAB.ER.24H PO SCH (20:28)
[2020-06-03] MEDS: Magnesium Oxide 400 MG TABLET PO SCH (20:28)
[2020-06-03 22:30] LABS: VBG Ionized Calcium 1.06 mmol/L (1.15-1.35)
[2020-06-03 22:43] LABS: BUN/Creatinine Ratio 40 (6-26); Blood Urea Nitrogen 35 mg/dL (8-23); Calcium 8.8 mg/dL (8.6-10.3); Carbon Dioxide 30 mEq/L (23-29); Chloride 97 mEq/L (98-107); Glucose 148 mg/dL (70-105); Magnesium 1.5 mg/dL (1.6-2.6); Osmolality,Calculated 291 (280-300); Potassium 3.8 mEq/L (3.5-5.1); Sodium 135 mEq/L (136-145); eGFR For African Americans > 60 (> 60); eGFR For Non-African Americans > 60 (> 60)
[2020-06-04] MEDS: Calcium Gluconate 1gm/50mL 1 GM/50 ML BAG IVPB SCH ×2 (02:35→03:29)
[2020-06-04 04:47] LABS: Basophils % 0.2 %
[2020-06-04 04:49] LABS: Eosinophils # 0.1 K/mcL (0.0-0.6); Eosinophils % 1.7 %; Hematocrit 27.8 % (35.3-44.9); Hemoglobin 8.3 g/dL (11.5-15.4); Immature Granulocytes % 0.8 % (0-4); Lymphocytes # 0.6 K/mcL (0.6-4.6); Lymphocytes % 7.6 %; Mean Corpuscular HGB Conc 29.9 g/dL (31.6-35.5); Mean Corpuscular Hemoglobin 29.1 pg (28.0-33.3); Mean Corpuscular Volume 97.5 fL (83.0-100.0); Mean Platelet Volume 11.2 fL (9.4-12.4); Monocytes # 0.6 K/mcL (0.0-1.3); Monocytes % 7.7 %; Neutrophils # 6.8 K/mcL (1.6-8.9); Nucleated Red Blood Cells 0.5 /100 WBC (0); Platelet Count 137 K/mcL (140-400); Red Blood Count 2.85 M/mcL (3.82-4.97); Red Cell Distribution Width 14.9 % (11.5-14.5); White Blood Count 8.3 K/mcL (4.3-11.1)
[2020-06-04 04:53] LABS: INR 1.5; Prothrombin Time 17.6 Seconds (9.4-12.1)
[2020-06-04 05:12] LABS: Alanine Aminotransferase 176 Units/L (7-52); Albumin 3.5 g/dL (3.5-5.7); Albumin/Globulin Ratio 1.5 (1.1-2.2); Alkaline Phosphatase 42 Units/L (34-104); Aspartate Amino Transferase 98 Units/L (13-39); BUN/Creatinine Ratio 34 (6-26); Bilirubin,Total 1.6 mg/dL (0.3-1.0); Blood Urea Nitrogen 33 mg/dL (8-23); Calcium 9.6 mg/dL (8.6-10.3); Carbon Dioxide 33 mEq/L (23-29); Chloride 96 mEq/L (98-107); Globulin 2.3 g/dL (2.4-3.5); Glucose 148 mg/dL (70-105); Magnesium 2.1 mg/dL (1.6-2.6); Osmolality,Calculated 292 (280-300); Potassium 4.1 mEq/L (3.5-5.1); Sodium 136 mEq/L (136-145); Total Protein 5.8 g/dL (6.4-8.9); eGFR For African Americans > 60 (> 60); eGFR For Non-African Americans 56 (> 60)
[2020-06-04 05:42] LABS: Platelet Estimate Normal (Normal)
[2020-06-04] MEDS: Insulin LISPRO 300 UNITS/3 ML VIAL SQ SCH ×3 (07:59→16:54)
[2020-06-04] MEDS: Magnesium Oxide 400 MG TABLET PO SCH ×2 (10:19→20:37)
[2020-06-04] MEDS: Bumetanide 1 MG TABLET PO SCH ×2 (10:19→20:36)
[2020-06-04] MEDS: Lactulose Oral Soln 20 GM/30 ML UDC PO SCH ×2 (10:19→20:37)
[2020-06-04] MEDS: *HR* Ticagrelor 90 MG TABLET PO SCH ×2 (10:19→20:37)
[2020-06-04] MEDS: Pantoprazole 40 MG VIAL IVP SCH (10:19)
[2020-06-04] MEDS: Aspirin Enteric Coated 81 MG Tablet PO SCH (10:19)
[2020-06-04] MEDS: Metoprolol XL (24 HR) Succ 50 MG TAB.ER.24H PO SCH ×2 (10:20→20:36)
[2020-06-04] MEDS ORDERED: Ringers Solution, Lactated 1,000 ML IVC SCH (15:30)
[2020-06-04] MEDS ORDERED: Lidocaine -MPF 2% 2 ML VIAL ONE (15:48)
[2020-06-04] MEDS ORDERED: *HR* PHENYLEPHRINE 1,000 MCG/10 ML SYRINGE IVP ONE (15:59)
[2020-06-04] MEDS: Heparin 25,000UNIT/250ML 1/2NS 25,000 UNIT/250 ML IV.SOLN IVC SCH (19:18)
[2020-06-05 05:48] LABS: Basophils % 0.2 %; Eosinophils % 0.3 %; Hematocrit 29.4 % (35.3-44.9); Hemoglobin 8.8 g/dL (11.5-15.4); Immature Granulocytes % 1.1 % (0-4); Lymphocytes # 0.5 K/mcL (0.6-4.6); Lymphocytes % 4.5 %; Mean Corpuscular HGB Conc 29.9 g/dL (31.6-35.5); Mean Corpuscular Hemoglobin 29.2 pg (28.0-33.3); Mean Corpuscular Volume 97.7 fL (83.0-100.0); Mean Platelet Volume 11.4 fL (9.4-12.4); Monocytes # 0.8 K/mcL (0.0-1.3); Monocytes % 6.4 %; Neutrophils # 10.2 K/mcL (1.6-8.9); Nucleated Red Blood Cells 0.3 /100 WBC (0); Platelet Count 181 K/mcL (140-400); Red Blood Count 3.01 M/mcL (3.82-4.97); Red Cell Distribution Width 15.2 % (11.5-14.5); Segmented Neutrophils % 87.5 %; White Blood Count 11.7 K/mcL (4.3-11.1)
[2020-06-05 05:51] LABS: INR 1.7; Prothrombin Time 19.5 Seconds (9.4-12.1)
[2020-06-05 06:09] LABS: Albumin 3.7 g/dL (3.5-5.7); Albumin/Globulin Ratio 1.5 (1.1-2.2); Bilirubin,Total 2.2 mg/dL (0.3-1.0); Calcium 9.2 mg/dL (8.6-10.3); Globulin 2.5 g/dL (2.4-3.5); Magnesium 1.9 mg/dL (1.6-2.6); Potassium 4.7 mEq/L (3.5-5.1); Total Protein 6.2 g/dL (6.4-8.9)
[2020-06-05] MEDS: Insulin LISPRO 300 UNITS/3 ML VIAL SQ SCH ×3 (07:51→15:45)
[2020-06-05] MEDS: Metoprolol XL (24 HR) Succ 50 MG TAB.ER.24H PO SCH (07:51)
[2020-06-05] MEDS: Bumetanide 1 MG TABLET PO SCH (07:51)
[2020-06-05] MEDS: Magnesium Oxide 400 MG TABLET PO SCH (07:51)
[2020-06-05] MEDS: Aspirin Enteric Coated 81 MG Tablet PO SCH (07:51)
[2020-06-05] MEDS: Pantoprazole 40 MG VIAL IVP SCH (07:51)
[2020-06-05] MEDS: *HR* Ticagrelor 90 MG TABLET PO SCH (07:51)
[2020-06-05] MEDS: Lactulose Oral Soln 20 GM/30 ML UDC PO SCH (08:01)
[2020-06-05] MEDS ORDERED: Benzonatate 100 MG CAPSULE PO PRN (11:27)
[2020-06-05 18:35] LABS: Adenovirus Not Detected (Not Detect); Bordetella Pertussis Not Detected (Not Detect); Chlamydophila pneumoniae Not Detected (Not Detect); Coronavirus 229E Not Detected (Not Detect); Coronavirus HKU1 Not Detected (Not Detect); Coronavirus NL63 Not Detected (Not Detect); Coronavirus OC43 Not Detected (Not Detect); Human Metapneumovirus Not Detected (Not Detect); Human Rhinovirus/Enterovirus DETECTED (Not Detect); Influenza A Subtype 2009 H1 Not Detected (Not Detect); Influenza B Not Detected (Not Detect); Mycoplasma pneumoniae Not Detected (Not Detect); Parainfluenza Virus 1 Not Detected (Not Detect); Parainfluenza Virus 2 Not Detected (Not Detect); Parainfluenza Virus 3 Not Detected (Not Detect); Parainfluenza Virus 4 Not Detected (Not Detect); Respiratory Syncytial Virus Not Detected (Not Detect); SARS-CoV-2 Not Detected (Not Detect)
[2020-06-05 19:15] VITALS: BP 96/47
[2020-06-07 14:05] LABS: Kappa Qnt Free Light Chains 50.3 mg/L (3.30-19.40); Lambda Qnt Free Light Chains 41.58 mg/L (5.71-26.30)
== END 2020-06-05 20:04 | disposition critical access hospital (66) | DRG 871 ==
LOC: 2ANU → SUATTDRO 05-31 15:32 → 2NNU 05-31 20:29 → 2ANU 06-04 10:31
PROVIDERS: ADMIT Internal Medicine; ATTEND Student in an Organized Health Care Education/Training Program
PROC: ENDOEBX (2020-06-04 14:05)